=== PATIENT | female | born 1950 | race African-American/Black ===

== ENCOUNTER 2020-03-07 06:41 | Inpatient (IN) | payer MEDICARE, MEDICAID, OTHER ==
[2020-03-07 07:33] LABS: #Basophils 0.1 thou/uL (0.0-0.2); #Eosinphils 0.2 thou/uL (0.0-0.7); #Lymphocytes 2.3 thou/uL (1.20-3.40); #Monocytes 0.6 thou/uL (0.11-0.59); #Neutrophils 4.2 thou/uL (1.40-6.50); %Eosinophils 2.6 % (0.0-10.0); %Lymphocytes 31.3 % (21.0-51.0); %Monocytes 8.6 % (0.0-10.0); %Neutrophils 56.4 % (42.0-75.0); Hemoglobin 11.5 g/dL (12.0-16.0); Mean Corpuscular HGB CONC 30.3 g/dL (32.0-36.0); Mean Corpuscular Hemoglobin 29.7 pg (27.0-31.0); Platelet Count 158 thou/uL (130-400); RBC Distribution Width 14.7 % (11.5-14.5); Red Blood Cell (RBC) Count 3.86 mill/uL (4.20-5.40); White Blood Cell (WBC) Count 7.4 thou/uL (4.8-10.8)
--- NOTE | 2020-03-07 07:52 | RAD ---
Exam: Chest one view HISTORY:Abdominal pain. COPD and CHF. Comparison: 01/15/2007 FINDINGS: Cardiac silhouette: Normal Aorta: Elongated Pulmonary vessels: Normal Costophrenic angles: Minor fissure thickening. LUNGS: Bibasilar opacities may represent atelectasis or scar. Superimposed edema cannot be excluded. Pneumothorax: None Osseous abnormalities: None Lines and tubes: Right-sided HemoSplit dialysis catheter terminates over the cavoatrial junction. IMPRESSION: 1. Bibasilar subsegmental atelectasis or scarring. 2. Minimal thickening of the minor fissure. Component of interstitial edema cannot be excluded.
[2020-03-07 07:53] LABS: ALT (SGPT) Less than 7 U/L (8-55); AST (SGOT) 16 U/L (5-34); Albumin 3.7 g/dL (3.4-4.8); Alkaline Phosphatase 76 U/L (40-110); Anion Gap 15 mmol/L (10-20); BUN (Urea Nitrogen) 34 mg/dL (9.8-20.1); Bilirubin, Total 0.3 mg/dL (0.2-1.2); Calc. Creatinine Clearance 0 mL/min (70-130); Calcium 8.6 mg/dL (7.8-10.44); Carbon Dioxide 27 mmol/L (23-31); Chloride 100 mmol/L (98-107); Estimated GFR-MDRD 8; Globulin 3.2 g/dL (2.4-3.5); Glucose 359 mg/dL (80-115); Lipase 83 U/L (8-78); Potassium 4.3 mmol/L (3.5-5.1); Protein, Total 6.9 g/dL (6.0-8.3); Sodium 138 mmol/L (136-145)
--- NOTE | 2020-03-07 09:20 | CT ---
CT ABDOMEN AND PELVIS WITHOUT IV CONTRAST: Date: 03/07/2020 INDICATION: Abdominal pain. Comparison made to prior CT abdomen and pelvis from 2007. FINDINGS: Streaky atelectasis in both lung bases posteriorly. Liver, spleen, and pancreas unremarkable. Stomach and duodenum unremarkable. There is a right adrenal nodule which is new since the prior study. This measures approximately 2.3 c m. The densities are very low, indicating a benign adenoma. Left adrenal gland unremarkable. Kidneys unremarkable. No hydronephrosis or urinary calculus. Small bowel loops normal caliber. Colon unremarkable with prominent stool in the rectosigmoid region. Consider constipation. Aorta normal caliber with mild atherosclerotic change. No adenopathy. No free fluid. Postoperative changes seen in the anterior abdominal wall in the midline. There is a calcified nodule in the anterior mesentery to the right of midline at the site of the prev iously noted low density mass. Osseous structures show an anterior compression deformity involving the T12 vertebra with loss of ant erior height greater than 50%. Posterior height is preserved. No retropulsion. Degenerative disc morales ges at T11-T12 and T12-L1 are noted. IMPRESSION: 1. Right adrenal nodule which has benign densities. 2. No acute intra-abdominal process identified. 3. Anterior wedge compression deformity involving the T12 vertebra which is age-indeterminate, proba alanna old. 4. Large volume stool in the rectosigmoid. POS: AH
[2020-03-07 10:07] LABS: Bilirubin 1+ (Negative); Blood, Urine Trace (Negative); Clarity Clear (Clear); Glucose, Urine (Dipstick) Normal (Negative); Ketone, Urine Trace mg/dL (Negative); Leukocyte Negative Leu/uL (Negative); Nitrite Negative (Negative); Protein, Urine (Dipstick) 200 mg/dL (Neg-Trace); RBC/HPF 0-3 HPF (0-3); Specific Gravity, Urine 1.021 (1.002-1.036); Squamous Epithelial 0-3 HPF (0-3); Urobilinogen 3 mg/dL (Less than 2); pH, Urine 5.5 (5.0-9.0)
[2020-03-07 10:16] LABS: Bacteria/HPF None Seen HPF (None Seen)
--- NOTE | 2020-03-07 10:54 | PDOC.HHP ---
Hospitalist HPI - History of Present Illness abdominal pain History of Present Illness: PCP: Out of [facility], [facility] call Patient is a 69-year-old female with past medical history significant for COPD, end-stage renal disease on dialysis, diabetes type 2, and hypothyroidism. She presents to the ER today with complaints of abdominal pain and epigastric pain. She also had some social concerns stating that she is homeless and wheelchair- bound and does currently not have a wheelchair. She is also oxygen dependent and states that she was unable to have her prescription refilled. When EMS came to the house her oxygen levels were 72 but quickly improved once O2 was placed on. She does state that she has been compliant with her dialysis and her last treatment was on Saturday which was 2 days ago. Her regular dialysis days are Saturday, Saturday, and Saturday. Patient was very tired during the interview and kept falling asleep, was also a poor historian. She states that she stayed at a friend's house last night as she had been staying with her son but that is "not working out well" at this time. She denies chest pain, exposure to sick persons, change in bladder patterns. Patient does states she does not know when her last bowel movement was. ED Course: VITAL SIGNS SatMar 07, 2020 06:44 BRYAN Bray Lee BP: 119/56, Pulse: 92, Resp: 18, Temp: 98.0 (Oral), Pain: 10, O2 sat: 72 on (Room Air), Time: 03/07/2020 06:44. VITAL SIGNS SatMar 07, 2020 08:30 BRYAN Cha Melanie BP: 133/74, MAP: 93, Pulse: 74, Resp: 21, Pain: 10, O2 sat: 98 on (3L Oxygen), Time: 03/07/2020 08:30. VITAL SIGNS SatMar 07, 2020 07:59 BRYAN Cha Melanie BP: 104/45, MAP: 64, Pulse: 73, Resp: 18, Pain: 9, O2 sat: 98 on (3L Oxygen), Time: 03/07/2020 07:59. VITAL SIGNS SatMar 07, 2020 07:00 BRYAN Cha Melanie O2 sat: 100 on (3L Oxygen), Time: 03/07/2020 07:00. VITAL SIGNS SatMar 07, 2020 09:10 BRYAN Cha Melanie BP: 116/66, MAP: 82, Pulse: 73, Resp: 22, Pain: 10, O2 sat: 100 on (3L Oxygen), Time: 03/07/2020 09:10. Today in the ER they completed an EKG, chest x-ray, lab work, and Covid swab. She received 500 mL of normal saline. Hospitalist ROS - Review of Systems Respiratory: reports: shortness of breath Gastrointestinal: reports: abdominal pain - Medication Medications: Allergies: ampicillin, Benadryl, latex gloves, penicillin G sodium Current Medications: nitroglycerin sublingual SatMar 07, 2020 07:36 BRYAN Cha Melanie tablet, sublingual : Strength - 0.4 mg : SUBLINGUAL Patient Dose: 0.4 mg Oral. gabapentin SatMar 07, 2020 09:04 BRYAN Cha Melanie capsule : Strength - 100 mg : ORAL Patient Dose: 100 mg Oral once a day (at bedtime). carvedilol SatMar 07, 2020 09:05 BRYAN Cha Melanie tablet : Strength - 6.25 mg : ORAL Patient Dose: 6.25 mg Oral once a day (in the morning). amLODIPine SatMar 07, 2020 09:06 BRYAN Cha Melanie tablet : Strength - 10 mg : ORAL Patient Dose: 10 mg Oral once a day (in the morning). rosuvastatin SatMar 07, 2020 09:06 BRYAN Cha Melanie tablet : Strength - 40 mg : ORAL Patient Dose: 40 mg Oral once a day (at bedtime). pantoprazole oral SatMar 07, 2020 09:07 BRYAN Cha Melanie tablet,delayed release (DR/EC) : Strength - 40 mg : ORAL Patient Dose: 40 mg Oral once a day (in the morning). Lexapro SatMar 07, 2020 09:07 BRYAN Cha Melanie tablet : Strength - 10 mg : ORAL Patient Dose: 10 mg Oral 2 times a day. calcium acetate oral SatMar 07, 2020 09:09 BRYAN Cha Melanie capsule : Strength - 667 mg : ORAL Patient Dose: 1334 mg Oral 3 times a day. Hospitalist History - Past Medical History Cardiac: reports: CHF Pulmonary: reports: COPD Psych: reports: Anxiety, Depression Endocrine: reports: Diabetes, Hypothyroidism - Past Surgical History Other Surgical History: hand and foot surgery - Family History Family History: reports: no pertinent history - Social History Smoking Status: Never smoker Alcohol: reports: None Drugs: reports: none Living Situation: Homeless Activity level: wheelchair bound - Exam General Appearance: NAD General - other findings: Sleepy, easily arousable Eye: PERRL, anicteric sclera ENT: normocephalic atraumatic, moist mucosa Heart: RRR, no murmur, no gallops, no rubs, normal peripheral pulses Respiratory: CTAB, no wheezes, no rales, no ronchi, normal chest expansion Gastrointestinal: soft, normal bowel sounds, tender to palpation Extremities: no cyanosis, no clubbing, no edema Skin - other findings: Dialysis port to right upper chest Psychiatric: oriented to person, oriented to place Psychiatric - other findings: Patient stated the year was 2001 Hospitalist Results - Labs Result Diagrams: 03/07/20 07:01 03/07/20 07:01 Lab results: WBC 7.4 thou/uL (4.8-10.8) 03/07/20 07:01 Hgb 11.5 g/dL (12.0-16.0) L 03/07/20 07:01 Hct 37.8 % (36.0-47.0) 03/07/20 07:01 MCV 98.0 fL (78.0-98.0) 03/07/20 07:01 Plt Count 158 thou/uL (130-400) 03/07/20 07:01 Neutrophils % 56.4 % (42.0-75.0) 03/07/20 07:01 Sodium 138 mmol/L (136-145) 03/07/20 07:01 Potassium 4.3 mmol/L (3.5-5.1) 03/07/20 07:01 Chloride 100 mmol/L (98-107) 03/07/20 07:01 Carbon Dioxide 27 mmol/L (23-31) 03/07/20 07:01 BUN 34 mg/dL (9.8-20.1) H 03/07/20 07:01 Creatinine 6.51 mg/dL (0.6-1.1) H 03/07/20 07:01 Glucose 359 mg/dL (80-115) H 03/07/20 07:01 Calcium 8.6 mg/dL (7.8-10.44) 03/07/20 07:01 Total Bilirubin 0.3 mg/dL (0.2-1.2) 03/07/20 07:01 AST 16 U/L (5-34) 03/07/20 07:01 ALT Less than 7 U/L (8-55) L 03/07/20 07:01 Alkaline Phosphatase 76 U/L (40-110) 03/07/20 07:01 Troponin I 0.016 ng/mL (< 0.028) 03/07/20 07:01 B-Natriuretic Peptide 31.6 pg/mL (0-100) 03/07/20 07:01 Serum Total Protein 6.9 g/dL (6.0-8.3) 03/07/20 07:01 Albumin 3.7 g/dL (3.4-4.8) 03/07/20 07:01 Lipase 83 U/L (8-78) H 03/07/20 07:01 Urine Ketones Trace mg/dL (Negative) A 03/07/20 09:51 Urine Blood Trace (Negative) A 03/07/20 09:51 Urine Nitrite Negative (Negative) 03/07/20 09:51 Ur Leukocyte Esterase Negative Russ/uL (Negative) 03/07/20 09:51 Urine RBC 0-3 HPF (0-3) 03/07/20 09:51 Urine WBC 4-6 HPF (0-3) A 03/07/20 09:51 Ur Squamous Epith Cells 0-3 HPF (0-3) 03/07/20 09:51 Urine Bacteria None Seen HPF (None Seen) 03/07/20 09:51 - EKG Interpretation EKG: Sinus rhythm 83 bpm - Radiology Interpretation Chest x-ray Status: image reviewed by me, report reviewed by me Additional Comment: Exam: Chest one view HISTORY:Abdominal pain. COPD and CHF. Comparison: 01/15/2007 FINDINGS: Cardiac silhouette: Normal Aorta: Elongated Pulmonary vessels: Normal Costophrenic angles: Minor fissure thickening. LUNGS: Bibasilar opacities may represent atelectasis or scar. Superimposed edema cannot be excluded. Pneumothorax: None Osseous abnormalities: None Lines and tubes: Right-sided HemoSplit dialysis catheter terminates over the cavoatrial junction. IMPRESSION: 1. Bibasilar subsegmental atelectasis or scarring. 2. Minimal thickening of the minor fissure. Component of interstitial edema cannot be excluded. Hospitalist H&P A/P - Plan Plan: Hypoxia O2 saturation greatly improved once patient was placed on oxygen Patient normally on home oxygen but has not been available recently, unsure how long patient has been off of oxygen Case management consult to assist with resources Abdominal pain Abdominal CT shows large volume of stool in the rectosigmoid P.r.n. medications available to assist patient having bowel movement Patient unsure when her last bowel movement was Monitor if patient's abdominal pain decreases after bowel movement End stage renal disease on dialysis Patient states she has been compliant with her dialysis treatments Patient unsure who her jig builder is or what treatment center she uses States dialysis port was placed in [place] Consult nephrology for hospital stay Diabetes type 2 Monitor Accu-Cheks before meals at bedtime with mild sliding scale insulin No diabetic medications listed on home regimen Hemoglobin A1c ordered VTE prophylaxis in place with SCDs, GI prophylaxis with Pepcid CODE STATUS: Full Patient does not wish to list a surrogate decision-maker
[2020-03-07] MEDS ORDERED: Dextrose 5% in Water 1,000 ML IV PRN (11:42)
[2020-03-07] MEDS ORDERED: Dextrose 50% Abboject 50 ML SYRINGE SLOW IVP PRN (11:42)
[2020-03-07] MEDS ORDERED: Bisacodyl 5 MG TAB PO PRN (11:42)
[2020-03-07] MEDS ORDERED: HumaLOG 300 UNITS/3 ML VIAL SC PRN (11:42)
[2020-03-07] MEDS ORDERED: Senokot S 8.6-50 MG TAB PO PRN (11:42)
[2020-03-07 11:56] LABS: Troponin I Less than 0.010 ng/mL (< 0.028)
[2020-03-07] MEDS: HumaLOG 300 UNITS/3 ML VIAL SC PRN ×2 (13:55→19:22)
[2020-03-07 14:05] LABS: Troponin I Less than 0.010 ng/mL (< 0.028)
[2020-03-07] MEDS ORDERED: Acetaminophen 325 MG TAB PO PRN (14:42)
[2020-03-07] MEDS: Heparin 5,000 UNITS/ML VIAL SC SCH (20:51)
[2020-03-07] MEDS ORDERED: Famotidine 20 MG TAB PO SCH (21:00)
[2020-03-08 04:43] LABS: #Basophils 0.1 thou/uL (0.0-0.2); #Eosinphils 0.3 thou/uL (0.0-0.7); #Lymphocytes 2.4 thou/uL (1.20-3.40); #Monocytes 0.7 thou/uL (0.11-0.59); #Neutrophils 4.1 thou/uL (1.40-6.50); %Basophils 0.8 % (0.0-1.0); %Eosinophils 3.6 % (0.0-10.0); %Lymphocytes 32.2 % (21.0-51.0); %Monocytes 8.7 % (0.0-10.0); %Neutrophils 54.7 % (42.0-75.0); Mean Corpuscular HGB CONC 30.1 g/dL (32.0-36.0); Mean Corpuscular Hemoglobin 29.7 pg (27.0-31.0); Mean Corpuscular Volume 98.9 fL (78.0-98.0); Mean Platelet Volume 8.3 fL (7.4-10.4); Platelet Count 151 thou/uL (130-400); RBC Distribution Width 14.7 % (11.5-14.5); Red Blood Cell (RBC) Count 3.69 mill/uL (4.20-5.40); White Blood Cell (WBC) Count 7.5 thou/uL (4.8-10.8)
[2020-03-08 04:48] LABS: Hemoglobin A1c 8.1 % (4.0-6.0)
[2020-03-08 05:07] LABS: Albumin 3.4 g/dL (3.4-4.8); Anion Gap 16 mmol/L (10-20); BUN (Urea Nitrogen) 43 mg/dL (9.8-20.1); BUN/Creatinine Ratio 7.26; Calc. Creatinine Clearance 14 mL/min (70-130); Calcium 8.2 mg/dL (7.8-10.44); Carbon Dioxide 27 mmol/L (23-31); Chloride 100 mmol/L (98-107); Estimated GFR-MDRD 9; Glucose 201 mg/dL (80-115); Phosphorus 7.5 mg/dL (2.3-4.7); Potassium 4.7 mmol/L (3.5-5.1); Sodium 138 mmol/L (136-145)
[2020-03-08] MEDS: HumaLOG 300 UNITS/3 ML VIAL SC PRN ×2 (06:04→18:00)
--- NOTE | 2020-03-08 07:04 | CON ---
DATE OF CONSULTATION: REASON FOR CONSULTATION: End-stage renal disease, for maintenance hemodialysis. HISTORY OF PRESENT ILLNESS: This is a 69-year-old female, presented to the hospital with abdominal pain. The patient does dialysis Saturday, , Saturday at [facility] in [place]. The patient denies any nausea, vomiting, or chest pain. The patient has recently started dialysis. PAST MEDICAL HISTORY: Hypertension, congestive heart failure, diabetes mellitus, hypothyroidism, COPD, anxiety, depression, chronic pain medication use, hand surgery, foot surgery, tunneled dialysis catheter AV fistula. SOCIAL HISTORY: No alcohol or drug use. FAMILY HISTORY: Negative for ESRD. ALLERGIES: REVIEWED. HOME MEDICATIONS: List reviewed. HOSPITAL MEDICATIONS: List reviewed. REVIEW OF SYSTEMS: A 15-point review of systems was performed, negative except for positives noted above. HEENT: Eyes intact, no diplopia. Ears: No hearing loss or earache. Nose: No discharge or bleeding. CHEST: No cough or phlegm. ABDOMEN: No nausea or vomiting. GENITOURINARY: No hematuria. No Gonzalez catheter. MUSCULOSKELETAL: No low back pain. No joint swelling or pain. NEUROLOGICAL: No syncope. No seizures. SKIN: No complaints of rash or itching. PSYCHIATRIC: No depression. CONSTITUTIONAL: No weight loss or loss of appetite. PHYSICAL EXAMINATION: GENERAL: The patient is awake and alert. VITAL SIGNS: Afebrile, pulse 75, breathing at 16, blood pressure 124/64. HEENT: Head normocephalic and atraumatic. Eyes intact, no ulcers. Nose intact, no ulcers. Ears intact, no ulcers. NECK: Supple. No JVD. CHEST: Symmetrical and clear. CARDIOVASCULAR: Shows S1 and S2, no rub, no murmur. GASTROINTESTINAL: Abdomen is soft, bowel sounds positive. EXTREMITIES: Show no edema or ulcers. SKIN: Shows no rash or petechiae. MUSCULOSKELETAL: Shows no joint swelling or stiffness. GENITOURINARY: Shows no Gonzalez or CVA tenderness. NEUROLOGIC: Motor intact. Cranial nerves intact. LABORATORY DATA: Reviewed. ASSESSMENT AND PLAN: 1. Stage 6 chronic kidney disease, plan dialysis tomorrow. 2. Hypertension, stable. 3. Anemia, stable. Medication based on GFR appropriate. 4. Abdominal pain, management per primary team. Job ID: [id number]
--- NOTE | 2020-03-08 10:06 | PRG ---
DATE OF SERVICE: 03/08/2020 SUBJECTIVE: A 69-year-old female, being seen for end-stage renal disease. The patient denies any nausea, vomiting, or chest pain. PHYSICAL EXAMINATION: GENERAL: The patient is awake and alert. VITAL SIGNS: Afebrile, pulse 77, breathing at 16, blood pressure 112/58. HEENT: Head normocephalic and atraumatic. Eyes intact, no ulcers. Nose intact, no ulcers. Ears intact, no ulcers. NECK: Supple. No JVD. CHEST: Symmetrical and clear. CARDIOVASCULAR: Shows S1 and S2, no rub, no murmur. GASTROINTESTINAL: Abdomen is soft, bowel sounds positive. EXTREMITIES: Show no edema or ulcers. SKIN: Shows no rash or petechiae. MUSCULOSKELETAL: Shows no joint swelling or stiffness. Genitourinary: Shows no Gonzalez or CVA tenderness. Neurologic: Motor intact. Cranial nerves intact. LABORATORY DATA: Hemoglobin 11. ASSESSMENT AND PLAN: 1. Stage 6 chronic kidney disease, plan dialysis. 2. Hypertension, stable. 3. Anemia, stable. Medication based on GFR appropriate. Job ID: [id number]
[2020-03-08] MEDS ORDERED: Heparin 10,000 UNITS/ 10 ML VIAL ONE (10:34)
[2020-03-08 11:42] LABS: SARS-CoV-2 MS2 Positive; SARS-CoV-2 N Gene Negative; SARS-CoV-2 S Gene Negative; SARS-CoV-2 by NAA Not Detected (NotDetected); SARS-CoV-2 orf1ab Negative
--- NOTE | 2020-03-08 13:52 | PDOC.HOSPP ---
- Subjective Encounter Date: 03/08/20 Encounter Time: 13:35 Subjective: f/u dyspnea/ESRD on HD and COPD on prior home O2. s/p HD this am and feeling better. States she recently moved back to [facility] after 46years away. Needs to establish with PCP. - Objective Vital Signs & Weight: Vital Signs (12 hours) Temp Pulse Resp BP Pulse Ox 03/08/20 07:30 97.5 F L 77 16 112/58 L 93 L 03/08/20 07:20 96 03/08/20 03:20 98.3 F 71 22 H 99/56 L 96 Weight Weight 211 lb 10.3 oz I&O: 03/07/20 03/08/20 03/09/20 06:59 06:59 06:59 Intake Total 240 Balance 240 Result Diagrams: 03/08/20 03:59 03/08/20 03:59 Additional Labs: Accuchecks 03/08/20 03/07/20 03/07/20 06:00 21:37 16:59 POC Glucose 187 H 206 H 179 H 03/07/20 12:40 POC Glucose 223 H Laboratory Tests 03/07/20 03/07/20 03/08/20 07:01 12:02 03:59 Hemoglobin A1c 8.1 H Phosphorus B-Natriuretic Peptide 31.6 Albumin PTH Intact SARS-CoV-2 (PCR) Not Detected 03/08/20 03/08/20 03:59 03:59 Hemoglobin A1c Phosphorus 7.5 H B-Natriuretic Peptide Albumin 3.4 PTH Intact 280.8 H SARS-CoV-2 (PCR) Radiology Reviewed by me: Yes (PCXR - chronic changes, interstitial edema) EKG Reviewed by me: Yes (Tele - SR) Hospitalist ROS - Medication Medications: Active Medications Generic Name Dose Route Start Last Admin Trade Name Freq PRN Reason Stop Dose Admin Heparin Sodium (Porcine) 5,000 units 03/07/20 21:00 03/07/20 20:51 Heparin 5,000 Units/Ml Vial SC 5,000 units TID ALBERTO Administration Insulin Human Lispro 0 units 03/07/20 11:42 03/08/20 06:04 Humalog 300 Units/3 Ml Vial SC 2 unit .MILD SLIDING SCALE PRN Administration Mild Correctional Scale - Exam General Appearance: NAD, awake alert General - other findings: smiling Eye: PERRL, anicteric sclera ENT: normocephalic atraumatic, no oropharyngeal lesions Neck: supple, symmetric, no JVD, no thyromegaly, no lymphadenopathy Heart: RRR, no gallops, no rubs, normal peripheral pulses Heart - other findings: S1, S2 Respiratory: CTAB, no wheezes, no rales, no ronchi Respiratory - other findings: diminished in bases Gastrointestinal: soft, non-distended, normal bowel sounds, no palpable masses Gastrointestinal - other findings: obese Extremities: no cyanosis, 1+ LE edema Skin: normal turgor Neurological: cranial nerve grossly intact, no new deficit Musculoskeletal: generalized weakness Psychiatric: normal affect, A&O x 3 Hosp A/P (1) ESRD (end stage renal disease) on dialysis Code(s): N18.6 - END STAGE RENAL DISEASE; Z99.2 - DEPENDENCE ON RENAL DIALYSIS Status: Acute Plan: HD per Renal service, serial monitoring (2) Acute respiratory failure with hypoxia Code(s): J96.01 - ACUTE RESPIRATORY FAILURE WITH HYPOXIA Status: Acute Plan: Mild resp distress, continue O2 supplementation, arrange for home O2 (3) DM II (diabetes mellitus, type II), controlled Code(s): E11.9 - TYPE 2 DIABETES MELLITUS WITHOUT COMPLICATIONS Status: Chronic Plan: ISS, resume home DM regimen, ADA (4) Hyperphosphatemia Code(s): E83.39 - OTHER DISORDERS OF PHOSPHORUS METABOLISM Status: Acute Plan: s/p HD today, serial monitoring (5) HTN (hypertension) Code(s): I10 - ESSENTIAL (PRIMARY) HYPERTENSION Status: Chronic Qualifiers: Hypertension type: essential hypertension Qualified Code(s): I10 - Essential (primary) hypertension Plan: Resume home BP regimen, serial monitoring - Plan PT/OT, social services manager, respiratory therapy, DVT proph w/SCDs Stable currently HD per Renal service Resume home BP regimen CM for dispo planning Likely will need home O2 AM lab: BMP, CBC
[2020-03-08] MEDS ORDERED: Nitroglycerin 0.4 MG TAB 1 EACH SL PRN (13:59)
[2020-03-08] MEDS: Heparin 5,000 UNITS/ML VIAL SC SCH ×3 (14:37→20:32)
[2020-03-08 15:09] VITALS: BMI 36.3
[2020-03-08] MEDS ORDERED: Non-Formulary Item 1 EACH (Albuterol Sulfate Hfa (Or) 200 PUFF Inh) IH SCH (17:00)
[2020-03-08] MEDS: traMADol HCl 50 MG TAB PO PRN (18:00)
[2020-03-08] MEDS: Calcium Acetate 667 MG CAP PO SCH (18:00)
[2020-03-08] MEDS: Mometasone 200 MCG/Formoterol 5 MCG 120 PUFF INHALER INH SCH (18:56)
[2020-03-08] MEDS: Carvedilol 6.25 MG TAB PO SCH (20:30)
[2020-03-08] MEDS: levETIRAcetam 500 MG TAB PO SCH (20:30)
[2020-03-08] MEDS ORDERED: Rosuvastatin 10 MG TAB PO SCH (21:00)
[2020-03-08] MEDS ORDERED: Non-Formulary Item 1 EACH (Insulin Detemir [Levemir Flextouch] 100 UNIT/ML Insuln.Pen) SQ SCH (21:00)
[2020-03-08] MEDS ORDERED: Insulin Glargine 24 UNITS in Pre-Filled Syringe 1 EACH SC SCH (21:00)
[2020-03-08] MEDS ORDERED: Gabapentin 100 MG CAP PO SCH (21:00)
[2020-03-09 04:20] LABS: #Eosinphils 0.2 thou/uL (0.0-0.7); #Lymphocytes 2.4 thou/uL (1.20-3.40); #Monocytes 0.7 thou/uL (0.11-0.59); %Basophils 0.2 % (0.0-1.0); %Eosinophils 3.1 % (0.0-10.0); %Lymphocytes 32.9 % (21.0-51.0); %Monocytes 9.8 % (0.0-10.0); Hemoglobin 10.9 g/dL (12.0-16.0); Mean Corpuscular HGB CONC 30.1 g/dL (32.0-36.0); Mean Corpuscular Hemoglobin 29.8 pg (27.0-31.0); Mean Corpuscular Volume 98.8 fL (78.0-98.0); Mean Platelet Volume 8.4 fL (7.4-10.4); Platelet Count 125 thou/uL (130-400); RBC Distribution Width 14.9 % (11.5-14.5); Red Blood Cell (RBC) Count 3.66 mill/uL (4.20-5.40); White Blood Cell (WBC) Count 7.4 thou/uL (4.8-10.8)
[2020-03-09 04:33] LABS: Anion Gap 14 mmol/L (10-20); BUN (Urea Nitrogen) 29 mg/dL (9.8-20.1); Calc. Creatinine Clearance 20 mL/min (70-130); Calcium 8.1 mg/dL (7.8-10.44); Carbon Dioxide 25 mmol/L (23-31); Chloride 102 mmol/L (98-107); Estimated GFR-MDRD 13; Glucose 184 mg/dL (80-115); Potassium 4.5 mmol/L (3.5-5.1); Sodium 136 mmol/L (136-145)
[2020-03-09] MEDS: Calcium Acetate 667 MG CAP PO SCH ×2 (07:41→11:31)
[2020-03-09] MEDS: levETIRAcetam 500 MG TAB PO SCH (07:48)
[2020-03-09] MEDS: Carvedilol 6.25 MG TAB PO SCH (07:48)
[2020-03-09] MEDS: traMADol HCl 50 MG TAB PO PRN (07:50)
[2020-03-09] MEDS: Heparin 5,000 UNITS/ML VIAL SC SCH (07:52)
--- NOTE | 2020-03-09 08:11 | PRG ---
DATE OF SERVICE: 03/09/2020 SUBJECTIVE: A 69-year-old female being seen for end-stage renal disease. The patient denies any nausea, vomiting, or chest pain. OBJECTIVE: GENERAL: Patient is awake, alert. VITAL SIGNS: Afebrile, pulse 68, breathing 16, blood pressure 128/63. HEENT: Head normocephalic and atraumatic. Eyes intact, no ulcers. Nose intact, no ulcers. Ears intact, no ulcers. NECK: Supple. No JVD. CHEST: Symmetrical and clear. CARDIOVASCULAR: Shows S1 and S2, no rub, no murmur. GASTROINTESTINAL: Abdomen is soft, bowel sounds positive. EXTREMITIES: Show no edema or ulcers. SKIN: Shows no rash or petechiae. MUSCULOSKELETAL: Shows no joint swelling or stiffness. GENITOURINARY: Shows no Gonzalez or CVA tenderness. NEUROLOGIC: Motor intact. Cranial nerves intact. LABORATORY DATA: Reviewed. ASSESSMENT: 1. Stage chronic kidney disease, continue hemodialysis. 2. Hypertension, stable. 3. Anemia, stable. Medication based on GFR appropriate. Job ID: [id number]
[2020-03-09] MEDS: Mometasone 200 MCG/Formoterol 5 MCG 120 PUFF INHALER INH SCH (08:25)
[2020-03-09] MEDS ORDERED: Escitalopram Oxalate 10 mg Tablet PO SCH (09:00)
[2020-03-09] MEDS ORDERED: Amlodipine 10 MG TAB PO SCH (09:00)
[2020-03-09] MEDS: HumaLOG 300 UNITS/3 ML VIAL SC PRN (11:31)
[2020-03-09 11:36] VITALS: BP 102/59; TEMP 98
--- NOTE | 2020-03-11 15:46 | DIS ---
DATE OF ADMISSION: 03/08/2020 DATE OF DISCHARGE: 03/09/2020 DISCHARGE DIAGNOSES: 1. End-stage renal disease with hemodialysis. 2. Acute on chronic hypoxic respiratory failure with chronic oxygen supplementation at 2 L/minute by nasal cannula. 3. Diabetes mellitus type 2, insulin requiring. 4. Hyperphosphatemia secondary to #1. 5. Hypertension, stable. 6. Seizure disorder. 7. Nonambulatory status. 8. Question of homelessness. CONSULTATIONS: Dr. Raphael with Nephrology Service. PERTINENT LABORATORY AND X-RAY FINDINGS: Creatinine ranged between 4.10 to 6.51, estimated GFR ranged between 8 to 13, calcium 8.2, hemoglobin A1c 8.1, phosphorus 7.5. Troponin I negative x3. BNP 32. Lipase 83. CBC showed a hemoglobin ranging between 10.9 to 11.5. COVID-19 PCR not detected 03/07/2020. Urine culture dated 03/07/2020 showed no growth at 24 hours. Portable chest x-ray dated 03/07/2020, showed bibasilar atelectasis. Mild interstitial edema. CT of the abdomen and pelvis dated 03/07/2020 showed no acute intraabdominal process. Large volume of stool in the rectosigmoid distribution. HOSPITAL COURSE: The patient was initially admitted after presenting with abdominal pain with associated shortness of breath. The patient with significant history of end-stage renal disease, on current hemodialysis, presented with increased shortness of breath and abdominal pain, undergoing general evaluation including CT of the abdomen and pelvis. No acute intraabdominal findings were noted and the patient did exhibit large amounts of stool in the rectosigmoid distribution. The patient was placed on oxygen supplementation and underwent hemodialysis at the direction of the Nephrology Service. The patient clinically stabilized and was on baseline oxygen supplementation at 2 L/minute by nasal cannula for the remainder of the hospital course. The patient was resumed on her regular diabetic regimen and antihypertensives and overall remained clinically stable. The patient was able to tolerate regular oral intake without nausea, vomiting, or clinical decompensation. Overall, the patient did remain clinically stable throughout the hospital course. I have examined the patient at the time of discharge and discussed followup instructions. The patient verbalizes understanding and agreement, ready for discharge 03/09/2020. DISCHARGE MEDICATIONS: 1. Amlodipine 10 mg p.o. daily. 2. Calcium acetate 1334 mg p.o. t.i.d. with meals. 3. Carvedilol 6.25 mg p.o. b.i.d. 4. Lexapro 20 mg p.o. daily. 5. Gabapentin 100 mg p.o. at bedtime. 6. Humalog 10 units subcutaneously t.i.d. with meals. 7. Levemir 24 units subcutaneously at bedtime. 8. Keppra 750 mg p.o. b.i.d. 9. Nitroglycerin 0.4 mg q.5 minutes p.r.n. chest pain. 10. Protonix 40 mg p.o. daily. 11. Crestor 40 mg p.o. at bedtime. 12. Proventil HFA one puff inhaled q.4 hours p.r.n. 13. Advair Diskus two inhalations b.i.d. FOLLOWUP: The patient may follow up with [facility] [place], [place]. The patient will follow up with Dr. Raphael with Nephrology Service for hemodialysis 3 times per week. CONDITION ON DISCHARGE: Guarded. ACTIVITY: Ad-michael, wheelchair-bound at baseline. DIET: ADA and renal. CODE STATUS: Full. DISPOSITION: To home, 03/09/2020. TIME SPENT: Total time preparing and coordinating discharge, 35 minutes. Job ID: [id number]
== END 2020-03-09 13:35 | disposition home or self-care (01) | DRG 189 ==
LOC: ERS 06:41 → 2NO 10:20 → OBSVTOIN 03-08 14:03
PROVIDERS: ADMIT Family Medicine; ATTEND Family Medicine
PROC: 5A1D70Z Performance of Urinary Filtration, Intermittent, Less than 6 Hours Per Day (ICD-10-PCS; principal; 2020-03-08)
DX: J96.21 Acute and chronic respiratory failure with hypoxia (principal); N18.6 End stage renal disease; I13.2 Hypertensive heart and chronic kidney disease with heart failure and with stage 5 chronic kidney disease, or end stage renal disease; Z20.828 Contact with and (suspected) exposure to other viral communicable diseases; J44.9 Chronic obstructive pulmonary disease, unspecified; E11.22 Type 2 diabetes mellitus with diabetic chronic kidney disease; E03.9 Hypothyroidism, unspecified; I50.9 Heart failure, unspecified; F41.9 Anxiety disorder, unspecified; F32.9 Major depressive disorder, single episode, unspecified; D63.1 Anemia in chronic kidney disease; E83.39 Other disorders of phosphorus metabolism; G40.909 Epilepsy, unspecified, not intractable, without status epilepticus; Z99.2 Dependence on renal dialysis; Z99.3 Dependence on wheelchair; Z88.0 Allergy status to penicillin; Z88.8 Allergy status to other drugs, medicaments and biological substances; Z88.1 Allergy status to other antibiotic agents; Z91.040 Latex allergy status; Z79.899 Other long term (current) drug therapy; Z59.0 Homelessness
CPT/HCPCS: 36415; 36416; 51701; 71045; 74176; 80048; 80053; 80069; 81003; 81015; 83036; 83690; 83880; 83970; 84484; 85025; 87086; 87635; 90935; 93005; 94640; 94760; G0257; G0378; J1644; J1815; J7620; U0003

== ENCOUNTER 2020-03-15 14:42 | Emergency (ER) | payer MEDICARE, MEDICAID ==
[2020-03-15 16:03] LABS: Anion Gap 19 mmol/L (10-20); BUN (Urea Nitrogen) 66 mg/dL (9.8-20.1); Calc. Creatinine Clearance 0 mL/min (70-130); Calcium 8.5 mg/dL (7.8-10.44); Carbon Dioxide 22 mmol/L (23-31); Chloride 101 mmol/L (98-107); Estimated GFR-MDRD 10; Glucose 260 mg/dL (80-115); Potassium 4.7 mmol/L (3.5-5.1); Sodium 137 mmol/L (136-145)
[2020-03-15 16:47] LABS: #Basophils 0.1 thou/uL (0.0-0.2); #Eosinphils 0.2 thou/uL (0.0-0.7); #Lymphocytes 2.7 thou/uL (1.20-3.40); #Monocytes 0.7 thou/uL (0.11-0.59); #Neutrophils 5.2 thou/uL (1.40-6.50); %Basophils 1.3 % (0.0-1.0); %Eosinophils 2.2 % (0.0-10.0); %Lymphocytes 29.9 % (21.0-51.0); %Monocytes 8.1 % (0.0-10.0); %Neutrophils 58.5 % (42.0-75.0); Hemoglobin 12.1 g/dL (12.0-16.0); Mean Corpuscular HGB CONC 31.1 g/dL (32.0-36.0); Mean Corpuscular Hemoglobin 29.7 pg (27.0-31.0); Mean Corpuscular Volume 95.4 fL (78.0-98.0); Mean Platelet Volume 8.9 fL (7.4-10.4); Platelet Count 136 thou/uL (130-400); RBC Distribution Width 14.3 % (11.5-14.5); Red Blood Cell (RBC) Count 4.06 mill/uL (4.20-5.40); White Blood Cell (WBC) Count 8.9 thou/uL (4.8-10.8)
--- NOTE | 2020-03-15 17:01 | RAD ---
EXAM: CHEST ONE VIEW HISTORY: Dyspnea. COMPARISON: 03/07/2020 FINDINGS: Tunneled right sided hemodialysis catheter remains in place. Cardiac silhouette is magnified by proje ction but stable in size. There are scattered bibasilar linear densities which may be related to mild volume loss or scarring. Linear densities have improved when compared to the prior exam. Focal e ventration right hemidiaphragm is present. No consolidation or pleural fluid is seen. No other interval change. IMPRESSION: Findings likely related to mild bibasilar scarring or atelectasis. No acute cardiopulmonary process i s present.
[2020-03-15 17:04] LABS: HBSAg Index 0.18 S/CO (0-0.99); Hep B Surf Ag Non-Reactive S/CO (NonReactive)
--- NOTE | 2020-03-15 23:05 | CON ---
DATE OF CONSULTATION: 03/15/2020 CONSULTING PHYSICIAN: ER doctor. REASON FOR CONSULTATION: End-stage renal disease evaluation and care. REASON FOR ADMISSION: Missing dialysis. HISTORY OF PRESENT ILLNESS: A 69-year-old female with history of COPD, end-stage renal disease, type 2 diabetes, came to the hospital after missing dialysis. Denies any shortness of breath. No chest pain or palpitation. No fever or chills. No nausea or vomiting. PAST MEDICAL HISTORY: Positive for end-stage renal disease, CHF, COPD, anxiety, depression, diabetes, hypothyroidism. PAST SURGICAL HISTORY: Had a foot surgery and dialysis access placement. HOME MEDICATIONS: Reviewed. ALLERGIES: AMPICILLIN, DIPHENHYDRAMINE, LATEX, AND PENICILLIN. SOCIAL HISTORY: No smoking, alcohol, or illicit drug abuse. FAMILY HISTORY: No history of kidney disease. REVIEW OF SYSTEMS: CONSTITUTIONAL: Negative for weight loss or gain, ability to conduct usual activities. SKIN: Negative for rash, itching. EYES: Negative for double vision, pain. ENT/MOUTH: Negative for nose bleeding, neck stiffness, pain, tenderness. CARDIOVASCULAR: Negative for palpitations, dyspnea on exertion, orthopnea. RESPIRATORY: Negative for shortness of breath, wheezing, cough, hemoptysis, fever or night sweats. GASTROINTESTINAL: Negative for poor appetite, abdominal pain, heartburn, nausea, vomiting, constipation, or diarrhea. GENITOURINARY: Negative for urgency, frequency, dysuria, nocturia. MUSCULOSKELETAL: Negative for pain, swelling. NEUROLOGIC/PSYCHIATRIC: Negative for anxiety, depression. ALLERGY/IMMUNOLOGIC: Negative for skin rash, bleeding tendency. PHYSICAL EXAMINATION: GENERAL: This is a well-built female, in no apparent distress. VITAL SIGNS: Reviewed. HEENT: Atraumatic, normocephalic. Oral mucosa moist. NECK: Supple. CV: S1, S2 heard. Rate and rhythm regular. RESPIRATORY: Clear. GASTROINTESTINAL: Abdomen is soft. MUSCULOSKELETAL: No tenderness. No edema. DERMATOLOGIC: Denies. NEUROLOGIC: Alert and awake. PSYCHIATRIC: Normal mood and affect. LABORATORY DATA: Potassium is 4.7, BUN is 66, creatinine 5.2. ASSESSMENT AND PLAN: 1. End-stage renal disease. The patient needs dialysis today. If she needs dialysis, continue dialysis TTS. 2. Edema, controlled. 3. History of hypertension. 4. Anemia of chronic disease. 5. Continue dialysis as tolerated if feasible at the hospital. Thank you for the consult. Job ID: [id number]
== END 2020-03-15 18:02 | disposition home or self-care (01) ==
LOC: ERS 14:42
DX: I13.2 Hypertensive heart and chronic kidney disease with heart failure and with stage 5 chronic kidney disease, or end stage renal disease (principal); N18.6 End stage renal disease; I50.9 Heart failure, unspecified; J44.9 Chronic obstructive pulmonary disease, unspecified; E11.22 Type 2 diabetes mellitus with diabetic chronic kidney disease; E03.9 Hypothyroidism, unspecified; Z86.73 Personal history of transient ischemic attack (TIA), and cerebral infarction without residual deficits; F41.9 Anxiety disorder, unspecified; F32.9 Major depressive disorder, single episode, unspecified; I25.10 Atherosclerotic heart disease of native coronary artery without angina pectoris; Z71.6 Tobacco abuse counseling; Z79.899 Other long term (current) drug therapy
CPT/HCPCS: 36415; 71045; 80048; 83880; 85025; 87340; 93005; 99406

== ENCOUNTER 2020-03-30 12:37 | Outpatient (CLI) | payer MEDICARE, MEDICAID ==
--- NOTE | 2020-03-30 14:37 | ULT ---
EXAM: Vein mapping for dialysis access HISTORY: End-stage renal disease. TECHNIQUE: Multiplanar grayscale and color Doppler images were obtained in a bilateral upper extremit y venous ultrasound. Spectral analysis of the Doppler waveforms of the vessels were performed. FINDINGS: The bilateral internal jugular veins and subclavian veins are patent without evidence of th rombus. Right brachial artery 4.9 mm Right radial artery 2.3 mm Right ulnar artery 2.2 mm Left brachial artery 5.2 mm Left radial artery 2.5 mm Left ulnar artery 1.9 mm RIGHT CEPHALIC VEIN in millimeters 3.4 -- Shoulder 2.2 -- Upper arm 1.8 -- Mid upper arm 1.6-- Just proximal to the elbow 1.9 -- Just distal to the elbow 2.1 -- Forearm 1.4 -- Wrist RIGHT BASILIC VEIN in millimeters 2.7 -- Shoulder 2.9 -- Upper arm 3.0 -- Mid upper arm 2.1 -- Just proximal to the elbow 1.6 -- Just distal to the elbow 1.6 -- Forearm 1.5 -- Wrist LEFT CEPHALIC VEIN in millimeters 3.3 -- Shoulder Thrombosed -- Upper arm Thrombosed -- Mid upper arm 0.8 -- Just proximal to the elbow 1.0 -- Just distal to the elbow 1.3 -- Forearm 1.4 -- Wrist LEFT BASILIC VEIN in millimeters 3.0 -- Shoulder 3.4 -- Upper arm 3.3 -- Mid upper arm 1.9 -- Just proximal to the elbow 2.1 -- Just distal to the elbow 1.6 -- Forearm 1.2 -- Wrist IMPRESSION: Vein mapping for dialysis access as above
== END 2020-03-30 12:38 | disposition home or self-care (01) ==
LOC: ULT 12:37
PROVIDERS: ATTEND Internal Medicine Nephrology
DX: R60.0 Localized edema (principal)
CPT/HCPCS: 93970

== ENCOUNTER 2020-04-18 07:20 | Emergency (ER) | payer MEDICARE, MEDICAID ==
--- NOTE | 2020-04-18 08:00 | RAD ---
RADIOGRAPH CHEST 1 VIEW: DATE: 04/18/2020 HISTORY: 69-year-old female with dyspnea and chest pain COMPARISON: 03/07/2020 FINDINGS: The thoracic aorta is tortuous and ectatic. There is no evidence of consolidation, pulmonary edema, o r pneumothorax. The lateral costophrenic angles are not effaced. Multifocal platelike pulmonary densities in the bilateral mid and lower lung zones consistent with subsegmental atelectasis and/or s car. There are probably at least mostly scar because there has been no interval change since the prior study. Right-sided hemodialysis catheter remains. IMPRESSION: 1) No acute pulmonary findings. 2) ectasia of thoracic aorta. 3) multifocal pulmonary scarring.
[2020-04-18 08:09] LABS: ALT (SGPT) 8 U/L (8-55); AST (SGOT) 8 U/L (5-34); Albumin 3.6 g/dL (3.4-4.8); Alkaline Phosphatase 76 U/L (40-110); Anion Gap 17 mmol/L (10-20); BUN (Urea Nitrogen) 72 mg/dL (9.8-20.1); Bilirubin, Total 0.2 mg/dL (0.2-1.2); Calc. Creatinine Clearance 0 mL/min (70-130); Calcium 8.1 mg/dL (7.8-10.44); Carbon Dioxide 27 mmol/L (23-31); Chloride 104 mmol/L (98-107); Estimated GFR-MDRD 20; Globulin 2.6 g/dL (2.4-3.5); Glucose 240 mg/dL (80-115); Potassium 4.8 mmol/L (3.5-5.1); Protein, Total 6.2 g/dL (6.0-8.3); Sodium 143 mmol/L (136-145)
[2020-04-18 08:10] LABS: #Basophils 0.1 thou/uL (0.0-0.2); #Eosinphils 0.3 thou/uL (0.0-0.7); #Lymphocytes 2.5 thou/uL (1.20-3.40); #Monocytes 0.7 thou/uL (0.11-0.59); #Neutrophils 3.6 thou/uL (1.40-6.50); %Basophils 1.4 % (0.0-1.0); %Eosinophils 4.1 % (0.0-10.0); %Lymphocytes 34.1 % (21.0-51.0); %Monocytes 10.1 % (0.0-10.0); %Neutrophils 50.4 % (42.0-75.0); Hemoglobin 11.8 g/dL (12.0-16.0); MDiff Complete? YES; Mean Corpuscular Volume 96.5 fL (78.0-98.0); Mean Platelet Volume 7.8 fL (7.4-10.4); Platelet Count 133 thou/uL (130-400); Platelet Morphology Comment Appears Adequate; Polychromasia SLIGHT = 2-3 cells (100X) (0-2/hpf); RBC Distribution Width 13.2 % (11.5-14.5); Red Blood Cell (RBC) Count 4.08 mill/uL (4.20-5.40); White Blood Cell (WBC) Count 7.2 thou/uL (4.8-10.8)
--- NOTE | 2020-04-18 08:19 | ULT ---
EXAM: Right upper extremity venous ultrasound HISTORY: Right upper extremity pain and edema COMPARISON: None TECHNIQUE: Multiplanar grayscale and color Doppler images were obtained in a right upper extremity ve nous ultrasound. Spectral analysis of the Doppler waveforms were performed. FINDINGS: The internal jugular vein demonstrates normal compression and flow without evidence of thrombus. Evaluation of the subclavian vein is limited secondary to multiple bandages. The subclavian vein demo nstrates normal flow and augmentation without evidence of thrombus. The axillary and brachial veins demonstrate normal compression, flow, and augmentation without eviden ce of thrombus. The venous structures distal to the elbow are patent without thrombus. The cephalic and basilic veins are patent. IMPRESSION: No evidence of DVT.
== END 2020-04-18 10:23 | disposition home or self-care (01) ==
LOC: ERS 07:20
DX: M79.89 Other specified soft tissue disorders (principal); E11.22 Type 2 diabetes mellitus with diabetic chronic kidney disease; N18.6 End stage renal disease; I50.9 Heart failure, unspecified; J44.9 Chronic obstructive pulmonary disease, unspecified; E03.9 Hypothyroidism, unspecified; Z99.2 Dependence on renal dialysis; Z86.73 Personal history of transient ischemic attack (TIA), and cerebral infarction without residual deficits
CPT/HCPCS: 36415; 71045; 80053; 85025

== ENCOUNTER 2020-04-26 15:24 | Emergency (ER) | payer MEDICARE, MEDICAID ==
--- NOTE | 2020-04-26 16:27 | CT ---
CT OF BRAIN PERFORMED WITHOUT CONTRAST ENHANCEMENT: 04/26/20 HISTORY: Fall with head injury. COMPARISON: 01/17/07 exam. The ventricular and cisternal system is within normal limits. There is no signs of intracerebral hemo rrhage or extra-axial fluid collections. Mastoid air cells and visualized sinuses are clear. IMPRESSION: No acute intracranial abnormalities. POS: KAUSHIK
--- NOTE | 2020-04-26 16:30 | CT ---
Exam: CT cervical spine without contrast HISTORY: Trauma. Pain. Patient got out of bed and fell. COMPARISON: None FINDINGS: No craniocervical dissociation. Appropriate alignment of the lateral masses of C1 and C2. Intact odon toid process Appropriate alignment of the facets. Craniocervical lordosis is presumed to be due to patient position, muscle spasm or cervical collar. Soft tissue neck structures: No mass, lymphadenopathy or hematoma. No prevertebral soft tissue swelli ng. Upper mediastinum and lung apices: Scarring in the right lung apex Central spinal canal: Severe degenerative disc disease at C3-C4, C4-C5, C5-C6. There are varying degr ees of central canal stenosis and neural foraminal narrowing on the basis of degenerative change. Vertebral bodies: Cervical spine vertebral body height is maintained. No fracture. Chronic changes al titus the superior endplate of T3. IMPRESSION: 1. Straightening of cervical lordosis as detailed above. If there is concern for ligamentous injury, consider MRI 2. No cervical spine fracture.
[2020-04-26] MEDS ORDERED: Ketorolac Tromethamine 30 MG/ML VIAL ONE (17:04)
--- NOTE | 2020-04-26 18:02 | CT ---
CT Thoracic Spine WO Con History: Fall Comparison: CT abdomen and pelvis February 2020. Findings: Mild atelectasis within the lung bases. Aortic contour is nonaneurysmal. No prevertebral he matoma. Chronic appearing superior endplate compression deformity of T3 with 5% anterior height loss and 15% superior endplate height loss. No retropulsion. Old compression deformity of T11 has no further height loss then the prior March 07, 2020 exam. No definite acute thoracic spine fracture or malalignment. Left-sided T12 superior endplate minimal compression deformity is also unchanged. Visualized posterior ribs are intact. No basilar pneumothorax. Impression: Chronic T3, T11, and T12 compression fractures. No acute thoracic spine fracture.
--- NOTE | 2020-04-26 18:06 | CT ---
CT Lumbar Spine WO Con History: Trauma. Fall Comparison: CT abdomen and pelvis February 2020 Findings: Old superior endplate compression deformity with minimal height loss of L3. No acute lumbar spine fracture or malalignment. Moderate facet arthrosis at L3-S1. No lumbar spine transverse process fracture. Visualized sacrum is without fracture. Moderate right and mild left SI joint degene rative changes. Moderate L4/L5 neural foraminal narrowing bilaterally due to disc bulge. Spinous processes are without fracture. No prevertebral hematoma. Aortic contour is nonaneurysmal. Mild right adrenal gland thickening. Impression: No acute lumbar spine fracture.
== END 2020-04-26 19:05 | disposition home or self-care (01) ==
LOC: ERS 15:24
DX: S09.90XA Unspecified injury of head, initial encounter (principal); J44.9 Chronic obstructive pulmonary disease, unspecified; N18.6 End stage renal disease; E11.22 Type 2 diabetes mellitus with diabetic chronic kidney disease; I50.9 Heart failure, unspecified; E03.9 Hypothyroidism, unspecified; W01.198A Fall on same level from slipping, tripping and stumbling with subsequent striking against other object, initial encounter; Z79.899 Other long term (current) drug therapy
CPT/HCPCS: 70450; 72125; 72128; 72131; 96374; J1885

== ENCOUNTER 2020-05-03 06:33 | Outpatient (CLI) | payer MEDICARE, MEDICAID ==
[2020-05-04 07:47] LABS: SARS-CoV-2 MS2 Positive; SARS-CoV-2 N Gene Negative; SARS-CoV-2 S Gene Negative; SARS-CoV-2 by NAA Not Detected (NotDetected); SARS-CoV-2 orf1ab Negative
== END 2020-05-03 06:34 | disposition home or self-care (01) ==
LOC: LABBT 06:33
PROVIDERS: ATTEND Specialist
DX: N18.6 End stage renal disease (principal); Z20.828 Contact with and (suspected) exposure to other viral communicable diseases
CPT/HCPCS: 87635; U0003

== ENCOUNTER 2020-05-17 11:22 | Emergency (ER) | payer MEDICARE, MEDICAID ==
[2020-05-17] MEDS ORDERED: Acetaminophen 500 MG TAB ONE (12:00)
--- NOTE | 2020-05-17 12:13 | RAD ---
RADIOGRAPH CHEST 1 VIEW: DATE: 05/17/2020 TIME: 12:01 PM HISTORY: 69-year-old female with cough COMPARISON: 04/18/2020 FINDINGS: The thoracic aorta is tortuous and ectatic. There is no evidence of consolidation, pulmonary edema, o r pneumothorax. The lateral costophrenic angles are not effaced. Multifocal platelike pulmonary densities in the bilateral mid and lower lung zones consistent with subsegmental atelectasis and/or s car. There are probably at least mostly scar because there has been no interval change since the prior study. Right-sided hemodialysis catheter remains. IMPRESSION: 1) No acute pulmonary findings. 2) ectasia of thoracic aorta. 3) multifocal pulmonary scarring.
--- NOTE | 2020-05-17 12:31 | RAD ---
XR Foot Lt 3 View STANDARD History: Injury Comparison: None. Findings: Small dorsal and plantar calcaneal spurs. No acute fracture. Fracture of the proximal phala nx small toe. Mild midfoot degenerative change. Impression: Extra-articular fracture proximal phalanx small toe.
[2020-05-17 12:49] LABS: #Basophils 0.1 thou/uL (0.0-0.2); #Eosinphils 0.2 thou/uL (0.0-0.7); #Lymphocytes 2.6 thou/uL (1.20-3.40); #Monocytes 0.6 thou/uL (0.11-0.59); #Neutrophils 4.2 thou/uL (1.40-6.50); %Eosinophils 2.4 % (0.0-10.0); %Lymphocytes 33.8 % (21.0-51.0); %Neutrophils 54.7 % (42.0-75.0); Hemoglobin 11.2 g/dL (12.0-16.0); Mean Corpuscular HGB CONC 30.6 g/dL (32.0-36.0); Mean Corpuscular Hemoglobin 29.3 pg (27.0-31.0); Mean Corpuscular Volume 95.8 fL (78.0-98.0); Mean Platelet Volume 4.5 fL (7.4-10.4); Platelet Count 128 thou/uL (130-400); RBC Distribution Width 13.2 % (11.5-14.5); Red Blood Cell (RBC) Count 3.82 mill/uL (4.20-5.40); White Blood Cell (WBC) Count 7.7 thou/uL (4.8-10.8)
[2020-05-17 13:00] LABS: ALT (SGPT) Less than 7 U/L (8-55); AST (SGOT) 8 U/L (5-34); Albumin 3.5 g/dL (3.4-4.8); Alkaline Phosphatase 61 U/L (40-110); Anion Gap 18 mmol/L (10-20); BUN (Urea Nitrogen) 52 mg/dL (9.8-20.1); Bilirubin, Total 0.3 mg/dL (0.2-1.2); Calc. Creatinine Clearance 0 mL/min (70-130); Calcium 7.6 mg/dL (7.8-10.44); Carbon Dioxide 29 mmol/L (23-31); Chloride 100 mmol/L (98-107); Globulin 2.9 g/dL (2.4-3.5); Glucose 161 mg/dL (80-115); Potassium 5.2 mmol/L (3.5-5.1); Protein, Total 6.4 g/dL (6.0-8.3); Sodium 142 mmol/L (136-145)
[2020-05-17] MEDS ORDERED: HYDROcodone/Acetaminophen 5/325 mg Tablet ONE (13:05)
== END 2020-05-17 14:00 | disposition home or self-care (01) ==
LOC: ERS 11:22
DX: S92.512A Displaced fracture of proximal phalanx of left lesser toe(s), initial encounter for closed fracture (principal); S90.415A Abrasion, left lesser toe(s), initial encounter; J44.9 Chronic obstructive pulmonary disease, unspecified; E03.9 Hypothyroidism, unspecified; E11.22 Type 2 diabetes mellitus with diabetic chronic kidney disease; N18.6 End stage renal disease; I50.9 Heart failure, unspecified; Z86.73 Personal history of transient ischemic attack (TIA), and cerebral infarction without residual deficits; Z99.2 Dependence on renal dialysis; Z79.4 Long term (current) use of insulin; Z79.899 Other long term (current) drug therapy; W22.8XXA Striking against or struck by other objects, initial encounter
CPT/HCPCS: 36415; 36416; 71045; 80053; 83605; 85025

== ENCOUNTER 2020-06-13 16:12 | Emergency (ER) | payer MEDICARE, MEDICAID ==
--- NOTE | 2020-06-13 17:11 | RAD ---
Exam: Chest one view HISTORY:Cough. Hemoptysis be Comparison: 05/17/2020 FINDINGS: Cardiac silhouette: Cardiomegaly. Stable right-sided HemoSplit dialysis catheter Aorta: Unremarkable Pulmonary vessels: Normal Costophrenic angles: Clear LUNGS: Bibasilar scarring and atelectasis. Pneumothorax: None Osseous abnormalities: None IMPRESSION: No acute cardiopulmonary process.
[2020-06-13 18:05] LABS: #Basophils 0.1 thou/uL (0.0-0.2); #Eosinphils 0.3 thou/uL (0.0-0.7); #Lymphocytes 2.2 thou/uL (1.20-3.40); #Monocytes 0.8 thou/uL (0.11-0.59); #Neutrophils 5.3 thou/uL (1.40-6.50); %Basophils 1.4 % (0.0-1.0); %Eosinophils 3.2 % (0.0-10.0); %Lymphocytes 25.1 % (21.0-51.0); %Monocytes 9.1 % (0.0-10.0); %Neutrophils 61.2 % (42.0-75.0); Hemoglobin 12.1 g/dL (12.0-16.0); Mean Corpuscular HGB CONC 30.7 g/dL (32.0-36.0); Mean Corpuscular Volume 94.5 fL (78.0-98.0); Mean Platelet Volume 7.6 fL (7.4-10.4); Platelet Count 159 thou/uL (130-400); RBC Distribution Width 13.5 % (11.5-14.5); Red Blood Cell (RBC) Count 4.18 mill/uL (4.20-5.40); White Blood Cell (WBC) Count 8.7 thou/uL (4.8-10.8)
[2020-06-13 18:36] LABS: ALT (SGPT) 7 U/L (8-55); AST (SGOT) 14 U/L (5-34); Albumin 3.8 g/dL (3.4-4.8); Alkaline Phosphatase 72 U/L (40-110); Anion Gap 18 mmol/L (10-20); BUN (Urea Nitrogen) 53 mg/dL (9.8-20.1); Bilirubin, Total 0.3 mg/dL (0.2-1.2); Calc. Creatinine Clearance 0 mL/min (70-130); Calcium 8.6 mg/dL (7.8-10.44); Carbon Dioxide 27 mmol/L (23-31); Chloride 98 mmol/L (98-107); Globulin 3.5 g/dL (2.4-3.5); Glucose 235 mg/dL (80-115); Potassium 5.4 mmol/L (3.5-5.1); Protein, Total 7.3 g/dL (5.8-8.1); Sodium 138 mmol/L (136-145)
== END 2020-06-13 18:56 | disposition home or self-care (01) ==
LOC: ERS 16:12
DX: R04.2 Hemoptysis (principal); J44.9 Chronic obstructive pulmonary disease, unspecified; E11.22 Type 2 diabetes mellitus with diabetic chronic kidney disease; N18.6 End stage renal disease; E03.9 Hypothyroidism, unspecified; Z86.73 Personal history of transient ischemic attack (TIA), and cerebral infarction without residual deficits; Z99.2 Dependence on renal dialysis; Z79.4 Long term (current) use of insulin; K43.9 Ventral hernia without obstruction or gangrene; Z79.899 Other long term (current) drug therapy
CPT/HCPCS: 36415; 71045; 80053; 85025

== ENCOUNTER 2020-07-05 11:31 | Emergency (ER) | payer MEDICARE, MEDICAID ==
[2020-07-05] MEDS ORDERED: Calcium Gluc 4.6 MEQ/10 ML (100 MG/ML) ONE (12:49)
[2020-07-05 12:57] LABS: #Basophils 0.1 thou/uL (0.0-0.2); #Eosinphils 0.2 thou/uL (0.0-0.7); #Monocytes 0.5 thou/uL (0.11-0.59); #Neutrophils 5.5 thou/uL (1.40-6.50); %Basophils 0.9 % (0.0-1.0); %Eosinophils 2.4 % (0.0-10.0); %Lymphocytes 24.2 % (21.0-51.0); %Monocytes 6.5 % (0.0-10.0); Hemoglobin 11.6 g/dL (12.0-16.0); Mean Corpuscular HGB CONC 31.7 g/dL (32.0-36.0); Mean Corpuscular Volume 94.6 fL (78.0-98.0); Mean Platelet Volume 8.1 fL (7.4-10.4); Platelet Count 126 thou/uL (130-400); RBC Distribution Width 13.4 % (11.5-14.5); Red Blood Cell (RBC) Count 3.87 mill/uL (4.20-5.40); White Blood Cell (WBC) Count 8.3 thou/uL (4.8-10.8)
[2020-07-05 13:18] LABS: ALT (SGPT) Less than 7 U/L (8-55); AST (SGOT) 10 U/L (5-34); Albumin 3.5 g/dL (3.4-4.8); Alkaline Phosphatase 72 U/L (40-110); Anion Gap 19 mmol/L (10-20); BUN (Urea Nitrogen) 88 mg/dL (9.8-20.1); Bilirubin, Total 0.2 mg/dL (0.2-1.2); Calc. Creatinine Clearance 0 mL/min (70-130); Calcium 7.7 mg/dL (7.8-10.44); Carbon Dioxide 25 mmol/L (23-31); Chloride 101 mmol/L (98-107); Globulin 3.3 g/dL (2.4-3.5); Glucose 358 mg/dL (80-115); Potassium 5.5 mmol/L (3.5-5.1); Protein, Total 6.8 g/dL (5.8-8.1); Sodium 139 mmol/L (136-145)
--- NOTE | 2020-07-05 14:07 | RAD ---
XR Chest 1 View Portable HISTORY: Dyspnea. Patient missed dialysis. COMPARISON: 06/13/2020 study. FINDINGS: Heart size is enlarged. No signs of overt failure. Bibasilar lung changes are similar to th e previous exam. IMPRESSION: Stable exam.
[2020-07-05] MEDS ORDERED: Sodium Bicarbonate 2.5 MEQ/5 ML VIAL ONE (14:25)
[2020-07-05] MEDS ORDERED: Dextrose 50% Abboject 50 ML SYRINGE ONE (14:26)
[2020-07-05] MEDS ORDERED: Sodium Bicarb 50 MEQ/50 ML Abboject 8.4% SYRINGE ONE (14:26)
[2020-07-05] MEDS ORDERED: Insulin Regular 300 UNITS/3 ML VIAL ONE (14:26)
[2020-07-05] MEDS ORDERED: Heparin 10,000 UNITS/ 10 ML VIAL ONE (16:55)
--- NOTE | 2020-07-05 19:52 | CON ---
DATE OF CONSULTATION: 07/05/2020 CONSULTING PHYSICIAN: Dr. Ventura from ER. REASON FOR CONSULTATION: End-stage renal disease evaluation. REASON FOR ADMISSION: Feeling weak. HISTORY OF PRESENT ILLNESS: This is a 69-year-old female with history of COPD, end-stage renal disease, type 2 diabetes, came to the hospital after missing dialysis and feeling weak and she is due for dialysis today. No fever or chills. The patient was found to be mildly hyperkalemic and Nephrology was consulted. PAST MEDICAL HISTORY: Positive for; 1. End-stage renal disease. 2. CHF. 3. COPD. 4. Anxiety. 5. Depression. 6. Type-2 diabetes. 7. Hypothyroidism. PAST SURGICAL HISTORY: Foot surgery, dialysis access placement. HOME MEDICATIONS: Reviewed. ALLERGIES: AMPICILLIN, ASPIRIN, DIPHENHYDRAMINE, LATEX, PENICILLIN. SOCIAL HISTORY: No smoking, alcohol, or illicit drug use. FAMILY HISTORY: No history of kidney disease. REVIEW OF SYSTEMS: CONSTITUTIONAL: Negative for weight loss or gain, ability to conduct usual activities. SKIN: Negative for rash, itching. EYES: Negative for double vision, pain. ENT/MOUTH: Negative for nose bleeding, neck stiffness, pain, tenderness. CARDIOVASCULAR: Negative for palpitations, dyspnea on exertion, orthopnea. RESPIRATORY: Negative for shortness of breath, wheezing, cough, hemoptysis, fever or night sweats. GASTROINTESTINAL: Negative for poor appetite, abdominal pain, heartburn, nausea, vomiting, constipation, or diarrhea. GENITOURINARY: Negative for urgency, frequency, dysuria, nocturia. MUSCULOSKELETAL: Negative for pain, swelling. NEUROLOGIC/PSYCHIATRIC: Negative for anxiety, depression. ALLERGY/IMMUNOLOGIC: Negative for skin rash, bleeding tendency. PHYSICAL EXAMINATION: GENERAL: This is a well-built female, in no apparent distress. VITAL SIGNS: Reviewed. HEENT: Atraumatic, normocephalic. Oral mucosa moist. NECK: Supple. CVS: S1, S2 heard. Rate and rhythm, regular. RESPIRATORY: Clear. GI: Abdomen is soft. MUSCULOSKELETAL: 1+ edema. DERMATOLOGIC: No skin rash. NEUROLOGIC: Alert and awake. PSYCHIATRIC: Normal mood and affect. LABORATORY DATA: Hemoglobin 11.6. Potassium 5.5, BUN is 88, creatinine is 5.09. ASSESSMENT AND PLAN: 1. End-stage renal disease. Plan to have dialysis. Dialysis nurse notified. We will have dialysis. 2. Edema. 3. History of . 4. Anemia of chronic disease. 5. Hypoalbuminemia. Plan to have dialysis as tolerated and we will follow. Job ID: [id number]
[2020-07-05] MEDS ORDERED: Acetaminophen 500 MG TAB ONE (22:38)
[2020-07-05] MEDS ORDERED: HYDROcodone/Acetaminophen 5/325 mg Tablet ONE (22:41)
[2020-07-06] MEDS ORDERED: Albumin 25% 25 GM/100 ML BOT IVPB SCH (03:15)
--- NOTE | 2020-07-09 15:54 | EKG ---
Test Reason : Blood Pressure : / mmHG Vent. Rate : 090 BPM Atrial Rate : 090 BPM P-R Int : 184 ms QRS Dur : 080 ms QT Int : 376 ms P-R-T Axes : 055 -44 111 degrees QTc Int : 459 ms Normal sinus rhythm Left axis deviation T wave abnormality, consider lateral ischemia Abnormal ECG Confirmed by ANGEL RICHARDS ([id number]), dictionary editor LINWOOD YI ([id number]) on 07/09/2020 3:53:38 PM Referred By: Confirmed By:ANGEL RICHARDS
== END 2020-07-06 08:18 | disposition home or self-care (01) ==
LOC: ERS 11:31
DX: E87.70 Fluid overload, unspecified (principal); E87.5 Hyperkalemia; J44.9 Chronic obstructive pulmonary disease, unspecified; E11.22 Type 2 diabetes mellitus with diabetic chronic kidney disease; N18.6 End stage renal disease; I50.9 Heart failure, unspecified; E03.9 Hypothyroidism, unspecified; Z86.73 Personal history of transient ischemic attack (TIA), and cerebral infarction without residual deficits; Z99.2 Dependence on renal dialysis; Z79.4 Long term (current) use of insulin; Z79.899 Other long term (current) drug therapy
CPT/HCPCS: 71045; 80053; 82962; 83880; 84484; 85025; 93005; 96374; 96375; 99285; P9047; 36416; 90935; G0257; J1644; J1815; J2001

== ENCOUNTER 2020-07-20 10:27 | Outpatient (CLI) | payer MEDICARE, MEDICAID ==
[2020-07-20 21:51] LABS: SARS-CoV-2 PCR by NAA Not Detected (NotDetected)
== END 2020-07-20 10:28 | disposition home or self-care (01) ==
LOC: LABBT 10:27
PROVIDERS: ATTEND Specialist
DX: Z01.812 Encounter for preprocedural laboratory examination (principal); E11.22 Type 2 diabetes mellitus with diabetic chronic kidney disease; N18.6 End stage renal disease; I50.9 Heart failure, unspecified; Z20.822 Contact with and (suspected) exposure to COVID-19
CPT/HCPCS: U0003; U0005; 87635

== ENCOUNTER 2020-07-25 05:26 | Observation (INO) | payer MEDICARE, MEDICAID ==
[2020-07-22 11:53] VITALS: BMI 38.9
[2020-07-25] MEDS ORDERED: Levofloxacin 500 mg/D5W 100 ml Premix Bag ONE (06:11)
[2020-07-25 06:46] LABS: #Basophils 0.1 thou/uL (0.0-0.2); #Eosinphils 0.2 thou/uL (0.0-0.7); #Lymphocytes 2.9 thou/uL (1.20-3.40); #Monocytes 0.8 thou/uL (0.11-0.59); #Neutrophils 5.6 thou/uL (1.40-6.50); %Basophils 0.8 % (0.0-1.0); %Eosinophils 2.5 % (0.0-10.0); %Lymphocytes 30.2 % (21.0-51.0); %Monocytes 8.4 % (0.0-10.0); %Neutrophils 58.1 % (42.0-75.0); Hemoglobin 11.6 g/dL (12.0-16.0); Mean Corpuscular HGB CONC 30.4 g/dL (32.0-36.0); Mean Corpuscular Hemoglobin 28.6 pg (27.0-31.0); Mean Corpuscular Volume 94.3 fL (78.0-98.0); Mean Platelet Volume 7.5 fL (7.4-10.4); Platelet Count 175 thou/uL (130-400); Red Blood Cell (RBC) Count 4.06 mill/uL (4.20-5.40); White Blood Cell (WBC) Count 9.6 thou/uL (4.8-10.8)
[2020-07-25] MEDS ORDERED: Protamine Sulfate 50 MG/5 ML VIAL ONE (06:55)
[2020-07-25] MEDS ORDERED: Heparin 10,000 UNITS/ 10 ML VIAL ONE ×2 (06:55→06:58)
[2020-07-25] MEDS ORDERED: Heparin 5,000 UNITS/ML VIAL ONE (06:55)
[2020-07-25] MEDS ORDERED: Lidocaine 1% w/Epinephrine 1:100K 20 ML VIAL ONE ×2 (06:55→10:33)
[2020-07-25] MEDS ORDERED: Bupivacaine 0.25% HCL 30 ML VIAL ONE ×2 (06:55→10:33)
[2020-07-25] MEDS ORDERED: Sodium Chloride 0.9% 20 ML ONE (06:55)
[2020-07-25 07:04] LABS: Anion Gap 15 mmol/L (10-20); Calc. Creatinine Clearance 17 mL/min (70-130); Calcium 9.1 mg/dL (7.8-10.44); Carbon Dioxide 30 mmol/L (23-31); Chloride 99 mmol/L (98-107); Glucose 214 mg/dL (80-115); Potassium 4.9 mmol/L (3.5-5.1); Sodium 139 mmol/L (136-145)
[2020-07-25 07:17] LABS: BUN (Urea Nitrogen) 50 mg/dL (9.8-20.1)
[2020-07-25] MEDS ORDERED: Fentanyl 100 MCG/2 ML VIAL ONE ×4 (07:20→12:27)
[2020-07-25] MEDS ORDERED: Lidocaine 2% PF 5 ML VIAL ONE (09:21)
[2020-07-25] MEDS ORDERED: Lidocaine 1% PF 5 ML VIAL ONE (10:59)
[2020-07-25] MEDS ORDERED: PHENYLEPHRINE-NS 100 MCG/ML 10 ML SYRINGE ONE (10:59)
[2020-07-25] MEDS ORDERED: PROPOFOL 200 MG/20 ML VIAL ONE (10:59)
[2020-07-25] MEDS ORDERED: Heparin 1,000 UNITS/ML VIAL ONE (13:08)
[2020-07-25] MEDS ORDERED: Morphine 2 MG/ML VIAL ONE ×2 (13:13→14:49)
[2020-07-25] MEDS ORDERED: Ondansetron PF 4 MG/2 ML Vial IVP PRN (13:29)
[2020-07-25] MEDS ORDERED: Dextrose 50% Abboject 50 ML SYRINGE SLOW IVP PRN (13:29)
[2020-07-25] MEDS ORDERED: Dextrose 5% in Water 1,000 ML IV PRN (13:29)
[2020-07-25] MEDS ORDERED: hydrALAZINE 20 MG/ML VIAL SLOW IVP PRN (13:29)
[2020-07-25] MEDS ORDERED: HumaLOG 300 UNITS/3 ML VIAL SC PRN (13:29)
[2020-07-25] MEDS ORDERED: Ondansetron ODT 4 MG TAB PO PRN (13:29)
[2020-07-25] MEDS ORDERED: Acetaminophen 500 MG TAB PO PRN (13:33)
[2020-07-25] MEDS ORDERED: Nitroglycerin 0.4 MG TAB (25 Tab Bottle) SL PRN (13:34)
[2020-07-25] MEDS ORDERED: traMADol HCl 50 MG TAB PO PRN (13:34)
[2020-07-25] MEDS ORDERED: Sodium Chloride 0.9% 10 ML ONE ×2 (14:06→14:50)
[2020-07-25] MEDS ORDERED: HYDROcodone/Acetaminophen 5/325 mg Tablet ONE (14:24)
[2020-07-25] MEDS: HYDROcodone/Acetaminophen 10/325 mg Tablet PO PRN ×2 (15:55→21:25)
[2020-07-25] MEDS: HumaLOG 300 UNITS/3 ML VIAL SC SCH (18:54)
[2020-07-25] MEDS: Calcium Acetate 667 MG CAP PO SCH (18:56)
[2020-07-25] MEDS: Morphine 2 MG/ML VIAL SLOW IVP PRN (18:56)
[2020-07-25] MEDS: Albuterol Sulfate 2.5 mg/3 ml Neb NEB SCH ×3 (19:01→23:18)
[2020-07-25] MEDS: Mometasone 200 MCG/Formoterol 5 MCG 120 PUFF INHALER INH SCH (20:35)
[2020-07-25] MEDS ORDERED: Gabapentin 100 MG CAP PO SCH (21:00)
[2020-07-25] MEDS ORDERED: Insulin Glargine 24 UNITS in Pre-Filled Syringe 1 EACH SC SCH (21:00)
[2020-07-25] MEDS ORDERED: Rosuvastatin 20 MG TAB PO SCH (21:00)
[2020-07-25] MEDS ORDERED: Non-Formulary Item 1 EACH (Insulin Detemir [Levemir Flextouch] 100 UNIT/ML Insuln.Pen) SQ SCH (21:00)
[2020-07-25] MEDS: Carvedilol 6.25 MG TAB PO SCH (21:23)
[2020-07-25] MEDS: levETIRAcetam 500 MG TAB PO SCH (21:24)
[2020-07-26] MEDS: Morphine 2 MG/ML VIAL SLOW IVP PRN (04:06)
[2020-07-26 05:55] LABS: #Eosinphils 0.3 thou/uL (0.0-0.7); #Lymphocytes 1.8 thou/uL (1.20-3.40); #Monocytes 0.8 thou/uL (0.11-0.59); #Neutrophils 6.9 thou/uL (1.40-6.50); %Basophils 0.2 % (0.0-1.0); %Eosinophils 2.6 % (0.0-10.0); %Lymphocytes 18.2 % (21.0-51.0); %Monocytes 8.5 % (0.0-10.0); %Neutrophils 70.5 % (42.0-75.0); Mean Corpuscular HGB CONC 30.1 g/dL (32.0-36.0); Mean Corpuscular Hemoglobin 28.7 pg (27.0-31.0); Mean Corpuscular Volume 95.1 fL (78.0-98.0); Mean Platelet Volume 7.2 fL (7.4-10.4); Platelet Count 155 thou/uL (130-400); RBC Distribution Width 13.9 % (11.5-14.5); Red Blood Cell (RBC) Count 3.49 mill/uL (4.20-5.40); White Blood Cell (WBC) Count 9.8 thou/uL (4.8-10.8)
[2020-07-26 06:12] LABS: Anion Gap 17 mmol/L (10-20); BUN (Urea Nitrogen) 59 mg/dL (9.8-20.1); Calc. Creatinine Clearance 14 mL/min (70-130); Calcium 8.6 mg/dL (7.8-10.44); Carbon Dioxide 24 mmol/L (23-31); Chloride 99 mmol/L (98-107); Glucose 178 mg/dL (80-115); Potassium 6.1 mmol/L (3.5-5.1); Sodium 134 mmol/L (136-145)
[2020-07-26] MEDS: HYDROcodone/Acetaminophen 10/325 mg Tablet PO PRN ×3 (06:41→17:04)
[2020-07-26] MEDS: Mometasone 200 MCG/Formoterol 5 MCG 120 PUFF INHALER INH SCH (07:12)
[2020-07-26] MEDS: Calcium Acetate 667 MG CAP PO SCH ×2 (08:20→14:21)
[2020-07-26] MEDS: HumaLOG 300 UNITS/3 ML VIAL SC SCH ×2 (08:20→12:00)
[2020-07-26] MEDS ORDERED: Escitalopram Oxalate 20 mg Tablet PO SCH (09:00)
[2020-07-26] MEDS ORDERED: Famotidine 20 MG TAB PO SCH (09:00)
[2020-07-26] MEDS ORDERED: Amlodipine 10 MG TAB PO SCH (09:00)
[2020-07-26] MEDS ORDERED: Heparin 10,000 UNITS/ 10 ML VIAL ONE (10:39)
[2020-07-26] MEDS: Carvedilol 6.25 MG TAB PO SCH (14:20)
[2020-07-26] MEDS: levETIRAcetam 500 MG TAB PO SCH (14:21)
[2020-07-26 16:15] VITALS: BP 103/63; TEMP 97.7
== END 2020-07-26 17:35 | disposition home or self-care (01) ==
LOC: SDC 05:26 → SURG B 13:35
PROVIDERS: ADMIT Specialist; ATTEND Specialist
PROC: 05WYX3Z Revision of Infusion Device in Upper Vein, External Approach (ICD-10-PCS; principal; 2020-07-25)
DX: T82.868A Thrombosis due to vascular prosthetic devices, implants and grafts, initial encounter (principal); I12.0 Hypertensive chronic kidney disease with stage 5 chronic kidney disease or end stage renal disease; E11.22 Type 2 diabetes mellitus with diabetic chronic kidney disease; N18.6 End stage renal disease; I50.9 Heart failure, unspecified; D63.1 Anemia in chronic kidney disease; E66.01 Morbid (severe) obesity due to excess calories; E66.9 Obesity, unspecified; F41.9 Anxiety disorder, unspecified; J44.9 Chronic obstructive pulmonary disease, unspecified; E03.9 Hypothyroidism, unspecified; Z68.38 Body mass index [BMI] 38.0-38.9, adult; Z79.4 Long term (current) use of insulin; Z79.899 Other long term (current) drug therapy; Z88.0 Allergy status to penicillin; Z88.6 Allergy status to analgesic agent; Z91.040 Latex allergy status; Z88.8 Allergy status to other drugs, medicaments and biological substances; Z99.2 Dependence on renal dialysis; Z99.3 Dependence on wheelchair
CPT/HCPCS: 36832; 71045; 80048 ×2; 82962 ×2; 83735; 85025 ×2; 93005; 94640 ×4; 96374; 96376; C1752; G0378 ×2; J2270 ×2; L8670; 36415; 36416; 93010; J1644; J1815; J1956; J2001; J2704; J2720; J3010; J7620; S0020

== ENCOUNTER 2020-07-28 12:58 | Emergency (ER) | payer MEDICARE, MEDICAID, OTHER ==
[2020-07-28 14:20] LABS: PTT 30.4 sec (22.9-36.1); Prothrombin Time 13.1 sec (12.0-14.7)
[2020-07-28 14:20] LABS: #Basophils 0.1 thou/uL (0.0-0.2); #Eosinphils 0.3 thou/uL (0.0-0.7); #Lymphocytes 1.5 thou/uL (1.20-3.40); #Monocytes 0.7 thou/uL (0.11-0.59); #Neutrophils 4.8 thou/uL (1.40-6.50); %Basophils 0.7 % (0.0-1.0); %Eosinophils 4.2 % (0.0-10.0); %Lymphocytes 20.6 % (21.0-51.0); %Monocytes 8.9 % (0.0-10.0); %Neutrophils 65.6 % (42.0-75.0); Hemoglobin 9.7 g/dL (12.0-16.0); Mean Corpuscular HGB CONC 30.6 g/dL (32.0-36.0); Mean Corpuscular Hemoglobin 28.9 pg (27.0-31.0); Mean Corpuscular Volume 94.2 fL (78.0-98.0); Mean Platelet Volume 7.8 fL (7.4-10.4); Platelet Count 133 thou/uL (130-400); RBC Distribution Width 13.9 % (11.5-14.5); Red Blood Cell (RBC) Count 3.37 mill/uL (4.20-5.40); White Blood Cell (WBC) Count 7.4 thou/uL (4.8-10.8)
[2020-07-28 14:42] LABS: ALT (SGPT) Less than 7 U/L (8-55); AST (SGOT) 13 U/L (5-34); Albumin 3.7 g/dL (3.4-4.8); Alkaline Phosphatase 79 U/L (40-110); Anion Gap 16 mmol/L (10-20); BUN (Urea Nitrogen) 26 mg/dL (9.8-20.1); Bilirubin, Total 0.3 mg/dL (0.2-1.2); Calc. Creatinine Clearance 0 mL/min (70-130); Calcium 8.2 mg/dL (7.8-10.44); Carbon Dioxide 26 mmol/L (23-31); Chloride 99 mmol/L (98-107); Glucose 276 mg/dL (80-115); Potassium 4.6 mmol/L (3.5-5.1); Protein, Total 6.7 g/dL (5.8-8.1); Sodium 136 mmol/L (136-145)
[2020-07-28 15:09] LABS: Free T4 (Free Thyroxine) 1.13 ng/dL (0.70-1.48); Thyroid Stimulating Hormone 0.9097 uIU/mL (0.35-4.94)
[2020-07-28] MEDS ORDERED: Ondansetron PF 4 MG/2 ML Vial ONE (15:46)
[2020-07-28] MEDS ORDERED: Morphine 4 MG/ML VIAL ONE (15:46)
[2020-07-28 17:12] LABS: Troponin I 0.028 ng/mL (< 0.028)
== END 2020-07-28 18:22 | disposition home or self-care (01) ==
LOC: ERS 12:58
DX: I80.8 Phlebitis and thrombophlebitis of other sites (principal); L03.113 Cellulitis of right upper limb; J44.9 Chronic obstructive pulmonary disease, unspecified; E11.22 Type 2 diabetes mellitus with diabetic chronic kidney disease; E03.9 Hypothyroidism, unspecified; N18.6 End stage renal disease; Z99.2 Dependence on renal dialysis; Z86.73 Personal history of transient ischemic attack (TIA), and cerebral infarction without residual deficits; Z79.4 Long term (current) use of insulin; Z79.899 Other long term (current) drug therapy
CPT/HCPCS: 36415; 36416; 71045; 80053; 82553; 83735; 83880; 84439; 84443; 84484; 85025; 85610; 85730; 93005; 96374; 96375; J2270; J2405

== ENCOUNTER 2020-08-01 09:06 | Emergency (ER) | payer MEDICARE, MEDICAID, OTHER ==
[~2020-08-01 09:06] MED LIST: Heparin 10,000 UNITS/ 10 ML VIAL ONE
[2020-08-01 10:00] LABS: #Eosinphils 0.2 thou/uL (0.0-0.7); #Lymphocytes 1.7 thou/uL (1.20-3.40); #Monocytes 0.7 thou/uL (0.11-0.59); #Neutrophils 5.6 thou/uL (1.40-6.50); %Basophils 0.2 % (0.0-1.0); %Eosinophils 2.7 % (0.0-10.0); %Lymphocytes 20.4 % (21.0-51.0); %Monocytes 8.6 % (0.0-10.0); %Neutrophils 68.1 % (42.0-75.0); Hemoglobin 9.4 g/dL (12.0-16.0); Mean Corpuscular HGB CONC 30.4 g/dL (32.0-36.0); Mean Corpuscular Volume 95.2 fL (78.0-98.0); Mean Platelet Volume 7.5 fL (7.4-10.4); Platelet Count 161 thou/uL (130-400); RBC Distribution Width 13.3 % (11.5-14.5); Red Blood Cell (RBC) Count 3.23 mill/uL (4.20-5.40); White Blood Cell (WBC) Count 8.2 thou/uL (4.8-10.8)
[2020-08-01 10:19] LABS: ALT (SGPT) Less than 7 U/L (8-55); AST (SGOT) 9 U/L (5-34); Albumin 3.7 g/dL (3.4-4.8); Alkaline Phosphatase 76 U/L (40-110); Anion Gap 21 mmol/L (10-20); BUN (Urea Nitrogen) 73 mg/dL (9.8-20.1); Bilirubin, Total 0.3 mg/dL (0.2-1.2); Calc. Creatinine Clearance 0 mL/min (70-130); Calcium 7.8 mg/dL (7.8-10.44); Carbon Dioxide 25 mmol/L (23-31); Chloride 100 mmol/L (98-107); Globulin 3.1 g/dL (2.4-3.5); Glucose 112 mg/dL (80-115); Potassium 5.6 mmol/L (3.5-5.1); Protein, Total 6.8 g/dL (5.8-8.1); Sodium 140 mmol/L (136-145)
[2020-08-01] MEDS ORDERED: Morphine 4 MG/ML VIAL ONE (12:02)
[2020-08-01] MEDS ORDERED: Acetaminophen 500 MG TAB ONE (17:09)
== END 2020-08-01 17:25 | disposition home or self-care (01) ==
LOC: ERS 09:06
DX: R53.1 Weakness (principal); I13.2 Hypertensive heart and chronic kidney disease with heart failure and with stage 5 chronic kidney disease, or end stage renal disease; I50.9 Heart failure, unspecified; N18.6 End stage renal disease; Z99.2 Dependence on renal dialysis; E11.22 Type 2 diabetes mellitus with diabetic chronic kidney disease; E87.5 Hyperkalemia; J44.9 Chronic obstructive pulmonary disease, unspecified; E03.9 Hypothyroidism, unspecified; D64.9 Anemia, unspecified; Z86.73 Personal history of transient ischemic attack (TIA), and cerebral infarction without residual deficits; Z79.899 Other long term (current) drug therapy; Z79.01 Long term (current) use of anticoagulants; Z79.4 Long term (current) use of insulin
CPT/HCPCS: 36415; 71045; 80053; 84484; 85025; 93005; 93931; 96372; J1644; J2270

== ENCOUNTER 2020-08-08 16:51 | Inpatient (IN) | payer MEDICARE, MEDICAID ==
[2020-08-08] MEDS ORDERED: HYDROcodone/Acetaminophen 10/325 mg Tablet PO PRN (17:43)
[2020-08-08] MEDS ORDERED: Vancomycin 1 GM in Premix Bag 1 BAG IVPB SCH ×2 (18:00→19:45)
[2020-08-08 18:07] VITALS: BMI 39.9
[2020-08-08] MEDS ORDERED: Nitroglycerin 0.4 MG TAB (25 Tab Bottle) SL PRN (19:15)
[2020-08-08] MEDS ORDERED: Vancomycin HCl 1.25 GM in Sodium Chloride 0.9% 250 ML 250 ML IVPB SCH (19:45)
[2020-08-08] MEDS ORDERED: HOLD VANCOMYCIN FOR LEVEL >20 FS SCH (19:45)
[2020-08-08] MEDS ORDERED: Vancomycin HCl 750 MG in Sodium Chloride 0.9% 250 ML 250 ML IVPB SCH (19:45)
[2020-08-08] MEDS ORDERED: Vancomycin HCl 500 MG in Sodium Chloride 0.9% 100 ML IVPB SCH (19:45)
[2020-08-08] MEDS ORDERED: Vancomycin Sliding Scale 1 EACH FS ONE (19:45)
[2020-08-08] MEDS: Rosuvastatin 20 MG TAB PO SCH (20:19)
[2020-08-08] MEDS: levETIRAcetam 500 MG TAB PO SCH (20:20)
[2020-08-08] MEDS: Gabapentin 100 MG CAP PO SCH (20:20)
[2020-08-08] MEDS: Carvedilol 6.25 MG TAB PO SCH (20:21)
[2020-08-08] MEDS: Albuterol Sulfate 2.5 mg/3 ml Neb NEB SCH (22:21)
[2020-08-08 23:00] LABS: Anion Gap 15 mmol/L (10-20); BUN (Urea Nitrogen) 39 mg/dL (9.8-20.1); Calc. Creatinine Clearance 12 mL/min (70-130); Calcium 8.4 mg/dL (7.8-10.44); Carbon Dioxide 28 mmol/L (23-31); Chloride 98 mmol/L (98-107); Glucose 213 mg/dL (80-115); Sodium 136 mmol/L (136-145)
[2020-08-08] MEDS: traMADol HCl 50 MG TAB PO PRN (23:40)
[2020-08-09] MEDS: HYDROcodone/Acetaminophen 10/325 mg Tablet PO PRN ×2 (02:04→17:15)
[2020-08-09] MEDS: Albuterol Sulfate 2.5 mg/3 ml Neb NEB SCH ×2 (02:06→07:51)
[2020-08-09] MEDS: traMADol HCl 50 MG TAB PO PRN ×2 (07:10→19:10)
[2020-08-09] MEDS: Mometasone 200 MCG/Formoterol 5 MCG 120 PUFF INHALER INH SCH ×2 (07:52→18:07)
[2020-08-09] MEDS ORDERED: Nystatin Powder 15 GM BOT TOP PRN (08:30)
[2020-08-09] MEDS: Calcium Acetate 667 MG CAP PO SCH ×3 (13:37→17:11)
[2020-08-09] MEDS ORDERED: Heparin 10,000 UNITS/ 10 ML VIAL ONE (13:54)
[2020-08-09] MEDS ORDERED: Morphine 4 MG/ML VIAL ONE (16:47)
[2020-08-09] MEDS: Carvedilol 6.25 MG TAB PO SCH ×2 (16:54→22:40)
[2020-08-09] MEDS: Amlodipine 10 MG TAB PO SCH (16:54)
[2020-08-09] MEDS: levETIRAcetam 500 MG TAB PO SCH ×2 (16:54→20:54)
[2020-08-09] MEDS: Gabapentin 300 MG CAP PO SCH ×2 (16:54→22:40)
[2020-08-09] MEDS ORDERED: Morphine 4 MG/ML VIAL SLOW IVP SCH (17:00)
[2020-08-09] MEDS: Escitalopram Oxalate 20 mg Tablet PO SCH (17:11)
[2020-08-09] MEDS: Acetaminophen 325 MG TAB PO PRN ×2 (19:10→23:27)
[2020-08-09] MEDS: Gabapentin 100 MG CAP PO SCH (20:53)
[2020-08-09] MEDS: Rosuvastatin 20 MG TAB PO SCH (20:53)
[2020-08-10] MEDS: traMADol HCl 50 MG TAB PO PRN ×3 (03:43→17:31)
[2020-08-10] MEDS: Acetaminophen 325 MG TAB PO PRN (06:21)
[2020-08-10] MEDS: Mometasone 200 MCG/Formoterol 5 MCG 120 PUFF INHALER INH SCH ×2 (07:52→18:27)
[2020-08-10] MEDS: Amlodipine 10 MG TAB PO SCH (08:23)
[2020-08-10] MEDS: Carvedilol 6.25 MG TAB PO SCH ×2 (08:24→20:39)
[2020-08-10] MEDS: Gabapentin 300 MG CAP PO SCH ×2 (08:27→21:08)
[2020-08-10] MEDS: levETIRAcetam 500 MG TAB PO SCH ×2 (08:27→20:33)
[2020-08-10] MEDS: Escitalopram Oxalate 20 mg Tablet PO SCH (08:27)
[2020-08-10] MEDS: Calcium Acetate 667 MG CAP PO SCH ×3 (08:27→17:31)
[2020-08-10] MEDS: HYDROcodone/Acetaminophen 10/325 mg Tablet PO PRN (11:39)
[2020-08-10] MEDS: Rosuvastatin 20 MG TAB PO SCH (20:33)
[2020-08-10] MEDS: Gabapentin 100 MG CAP PO SCH (20:34)
[2020-08-11] MEDS: traMADol HCl 50 MG TAB PO PRN ×3 (04:20→17:13)
[2020-08-11] MEDS: Mometasone 200 MCG/Formoterol 5 MCG 120 PUFF INHALER INH SCH (07:19)
[2020-08-11 07:53] VITALS: TEMP 97.8
[2020-08-11] MEDS: levETIRAcetam 500 MG TAB PO SCH (08:30)
[2020-08-11] MEDS: Escitalopram Oxalate 20 mg Tablet PO SCH (08:31)
[2020-08-11] MEDS: Carvedilol 6.25 MG TAB PO SCH (08:31)
[2020-08-11] MEDS: Gabapentin 300 MG CAP PO SCH (08:31)
[2020-08-11] MEDS: Calcium Acetate 667 MG CAP PO SCH ×3 (08:31→17:13)
[2020-08-11] MEDS: HYDROcodone/Acetaminophen 10/325 mg Tablet PO PRN ×2 (08:32→13:11)
[2020-08-11] MEDS: Amlodipine 10 MG TAB PO SCH (08:35)
[2020-08-11 08:46] LABS: Vancomycin, Random 7.2 ug/mL (See Comment)
[2020-08-11 11:36] VITALS: BP 103/58
[2020-08-11] MEDS ORDERED: Heparin 10,000 UNITS/ 10 ML VIAL ONE (13:44)
== END 2020-08-11 18:24 | DRG 637 ==
LOC: SURG B 17:01
PROVIDERS: ADMIT Specialist; ATTEND Specialist
PROC: 5A1D70Z Performance of Urinary Filtration, Intermittent, Less than 6 Hours Per Day (ICD-10-PCS; principal; 2020-08-09)
DX: E11.628 Type 2 diabetes mellitus with other skin complications (principal); J96.01 Acute respiratory failure with hypoxia; L02.411 Cutaneous abscess of right axilla; I13.2 Hypertensive heart and chronic kidney disease with heart failure and with stage 5 chronic kidney disease, or end stage renal disease; N18.6 End stage renal disease; Z20.822 Contact with and (suspected) exposure to COVID-19; E11.22 Type 2 diabetes mellitus with diabetic chronic kidney disease; I50.9 Heart failure, unspecified; J44.9 Chronic obstructive pulmonary disease, unspecified; E03.9 Hypothyroidism, unspecified; E66.9 Obesity, unspecified; E83.39 Other disorders of phosphorus metabolism; D63.1 Anemia in chronic kidney disease; Z88.1 Allergy status to other antibiotic agents; Z68.39 Body mass index [BMI] 39.0-39.9, adult; Z99.2 Dependence on renal dialysis; Z88.0 Allergy status to penicillin; Z88.8 Allergy status to other drugs, medicaments and biological substances; Z79.4 Long term (current) use of insulin; Z79.51 Long term (current) use of inhaled steroids; Z79.899 Other long term (current) drug therapy; Z91.19 Patient's noncompliance with other medical treatment and regimen
CPT/HCPCS: 36415; 36416; 80202; 82565; 87070; 87205; 90935; 94640; G0257; J1644; J2270; J3370; J7611; J7620

== ENCOUNTER 2020-08-14 09:58 | Observation (INO) | payer MEDICARE, OTHER ==
[2020-08-14 10:57] LABS: #Basophils 0.1 thou/uL (0.0-0.2); #Eosinphils 0.2 thou/uL (0.0-0.7); #Lymphocytes 2.3 thou/uL (1.20-3.40); #Monocytes 0.7 thou/uL (0.11-0.59); #Neutrophils 4.5 thou/uL (1.40-6.50); %Basophils 1.1 % (0.0-1.0); %Eosinophils 3.1 % (0.0-10.0); %Lymphocytes 28.9 % (21.0-51.0); %Monocytes 8.9 % (0.0-10.0); Hemoglobin 10.2 g/dL (12.0-16.0); Mean Corpuscular HGB CONC 30.3 g/dL (32.0-36.0); Mean Corpuscular Hemoglobin 28.9 pg (27.0-31.0); Mean Corpuscular Volume 95.4 fL (78.0-98.0); Mean Platelet Volume 7.5 fL (7.4-10.4); Platelet Count 180 thou/uL (130-400); RBC Distribution Width 13.9 % (11.5-14.5); Red Blood Cell (RBC) Count 3.52 mill/uL (4.20-5.40); White Blood Cell (WBC) Count 7.8 thou/uL (4.8-10.8)
[2020-08-14] MEDS ORDERED: Morphine 4 MG/ML VIAL ONE (11:07)
[2020-08-14 11:19] LABS: ALT (SGPT) Less than 7 U/L (8-55); AST (SGOT) 20 U/L (5-34); Albumin 3.8 g/dL (3.4-4.8); Alkaline Phosphatase 75 U/L (40-110); Anion Gap 18 mmol/L (10-20); BUN (Urea Nitrogen) 21 mg/dL (9.8-20.1); Bilirubin, Total 0.4 mg/dL (0.2-1.2); Calc. Creatinine Clearance 0 mL/min (70-130); Calcium 9.2 mg/dL (7.8-10.44); Carbon Dioxide 30 mmol/L (23-31); Chloride 98 mmol/L (98-107); Globulin 3.7 g/dL (2.4-3.5); Glucose 101 mg/dL (80-115); Potassium 4.5 mmol/L (3.5-5.1); Protein, Total 7.5 g/dL (5.8-8.1); Sodium 141 mmol/L (136-145)
[2020-08-14] MEDS ORDERED: Ondansetron ODT 4 MG TAB PO PRN (13:55)
[2020-08-14] MEDS ORDERED: Acetaminophen 325 MG TAB PO PRN (13:55)
[2020-08-14] MEDS ORDERED: Senokot S 8.6-50 MG TAB PO PRN (13:55)
[2020-08-14] MEDS ORDERED: HumaLOG 300 UNITS/3 ML VIAL SC PRN (14:03)
[2020-08-14] MEDS ORDERED: Dextrose 50% Abboject 50 ML SYRINGE SLOW IVP PRN (14:03)
[2020-08-14] MEDS ORDERED: Dextrose 5% in Water 1,000 ML IV PRN (14:03)
[2020-08-14] MEDS ORDERED: Ketorolac Tromethamine 30 MG/ML VIAL ONE (14:18)
[2020-08-14 16:43] VITALS: BMI 39.9
[2020-08-14] MEDS: Calcium Acetate 667 MG CAP PO SCH (16:49)
[2020-08-14] MEDS: HumaLOG 300 UNITS/3 ML VIAL SC SCH (16:50)
[2020-08-14] MEDS ORDERED: Albuterol Sulfate 1.25 MG/3 ML NEB NEB SCH (17:00)
[2020-08-14] MEDS: HYDROcodone/Acetaminophen 10/325 mg Tablet PO PRN ×2 (17:06→21:34)
[2020-08-14] MEDS: Albuterol 200 PUFF (6.7GM INHALER) INH SCH ×2 (19:05→22:24)
[2020-08-14] MEDS: Mometasone 200 MCG/Formoterol 5 MCG 120 PUFF INHALER INH SCH (19:05)
[2020-08-14 21:10] LABS: SARS-CoV-2 PCR by NAA Not Detected (NotDetected)
[2020-08-14] MEDS: levETIRAcetam 500 MG TAB PO SCH (21:37)
[2020-08-14] MEDS: Carvedilol 6.25 MG TAB PO SCH (21:38)
[2020-08-14] MEDS: Gabapentin 100 MG CAP PO SCH (21:38)
[2020-08-14] MEDS: Rosuvastatin 20 MG TAB PO SCH (21:38)
[2020-08-14] MEDS: Gabapentin 300 MG CAP PO SCH (21:39)
[2020-08-14] MEDS: Lantus 1000 UNITS/10 ML VIAL SC SCH (21:48)
[2020-08-15] MEDS: HYDROcodone/Acetaminophen 10/325 mg Tablet PO PRN ×5 (01:21→21:10)
[2020-08-15] MEDS: Albuterol 200 PUFF (6.7GM INHALER) INH SCH ×6 (02:47→23:15)
[2020-08-15] MEDS: Mometasone 200 MCG/Formoterol 5 MCG 120 PUFF INHALER INH SCH ×2 (06:48→18:41)
[2020-08-15] MEDS: HumaLOG 300 UNITS/3 ML VIAL SC SCH ×3 (08:22→18:34)
[2020-08-15] MEDS: Amlodipine 10 MG TAB PO SCH (08:23)
[2020-08-15] MEDS: levETIRAcetam 500 MG TAB PO SCH ×2 (08:23→21:03)
[2020-08-15] MEDS: Escitalopram Oxalate 20 mg Tablet PO SCH (08:23)
[2020-08-15] MEDS: Calcium Acetate 667 MG CAP PO SCH ×3 (08:23→18:33)
[2020-08-15] MEDS: Gabapentin 300 MG CAP PO SCH ×2 (08:24→21:04)
[2020-08-15] MEDS: Carvedilol 6.25 MG TAB PO SCH ×2 (08:24→21:05)
[2020-08-15] MEDS ORDERED: FLU VACC QS2020-21(65YR UP)/PF 240 MCG/0.7 ML SYRINGE IM ONE (09:00)
[2020-08-15] MEDS ORDERED: Lidocaine 5% Patch TD SCH (09:00)
[2020-08-15] MEDS ORDERED: Vancomycin 1 GM in Premix Bag 1 BAG IVPB SCH (10:30)
[2020-08-15] MEDS ORDERED: Vancomycin HCl 500 MG in Sodium Chloride 0.9% 100 ML IVPB SCH (10:30)
[2020-08-15] MEDS ORDERED: Vancomycin Sliding Scale 1 EACH FS SCH (10:30)
[2020-08-15] MEDS ORDERED: Vancomycin HCl 750 MG in Sodium Chloride 0.9% 250 ML 250 ML IVPB SCH (10:30)
[2020-08-15] MEDS ORDERED: VANCOMYCIN 2 GRAM/400 ML BAG 2 GM in Premix Bag 1 BAG IVPB SCH (10:30)
[2020-08-15] MEDS ORDERED: HOLD VANCOMYCIN FOR LEVEL >20 FS SCH (10:30)
[2020-08-15] MEDS ORDERED: Vancomycin HCl 1.25 GM in Sodium Chloride 0.9% 250 ML 250 ML IVPB SCH (10:30)
[2020-08-15] MEDS ORDERED: Transdermal Patch Removal TOP SCH (21:00)
[2020-08-15] MEDS: Rosuvastatin 20 MG TAB PO SCH (21:03)
[2020-08-15] MEDS: Gabapentin 100 MG CAP PO SCH (21:04)
[2020-08-15] MEDS: Lantus 1000 UNITS/10 ML VIAL SC SCH (21:05)
[2020-08-16] MEDS: HYDROcodone/Acetaminophen 10/325 mg Tablet PO PRN (02:48)
[2020-08-16] MEDS: Albuterol 200 PUFF (6.7GM INHALER) INH SCH ×3 (02:56→10:49)
[2020-08-16 06:46] LABS: Anion Gap 17 mmol/L (10-20); BUN (Urea Nitrogen) 43 mg/dL (9.8-20.1); Calc. Creatinine Clearance 10 mL/min (70-130); Calcium 8.3 mg/dL (7.8-10.44); Carbon Dioxide 28 mmol/L (23-31); Chloride 98 mmol/L (98-107); Glucose 144 mg/dL (80-115); Sodium 138 mmol/L (136-145)
[2020-08-16] MEDS: Mometasone 200 MCG/Formoterol 5 MCG 120 PUFF INHALER INH SCH (07:18)
[2020-08-16] MEDS: Amlodipine 10 MG TAB PO SCH (09:10)
[2020-08-16] MEDS: HumaLOG 300 UNITS/3 ML VIAL SC SCH ×2 (09:10→16:04)
[2020-08-16] MEDS: Calcium Acetate 667 MG CAP PO SCH ×2 (09:10→16:04)
[2020-08-16] MEDS: Carvedilol 6.25 MG TAB PO SCH (09:11)
[2020-08-16] MEDS: Gabapentin 300 MG CAP PO SCH (09:11)
[2020-08-16] MEDS: Escitalopram Oxalate 20 mg Tablet PO SCH (09:11)
[2020-08-16] MEDS: levETIRAcetam 500 MG TAB PO SCH (09:11)
[2020-08-16] MEDS ORDERED: Albumin 25% 25 GM/100 ML BOT IVPB SCH (09:15)
[2020-08-16 15:47] VITALS: BP 106/56; TEMP 98.2
== END 2020-08-16 16:55 | disposition home or self-care (01) ==
LOC: ERS 09:58 → SURG A 12:35 → INTOOBSV 12:35
PROVIDERS: ADMIT Internal Medicine; ATTEND Internal Medicine
DX: T85.698A Other mechanical complication of other specified internal prosthetic devices, implants and grafts, initial encounter (principal); L02.411 Cutaneous abscess of right axilla; I12.0 Hypertensive chronic kidney disease with stage 5 chronic kidney disease or end stage renal disease; E11.22 Type 2 diabetes mellitus with diabetic chronic kidney disease; N18.6 End stage renal disease; D63.1 Anemia in chronic kidney disease; E03.9 Hypothyroidism, unspecified; J44.9 Chronic obstructive pulmonary disease, unspecified; E66.9 Obesity, unspecified; Z68.39 Body mass index [BMI] 39.0-39.9, adult; Z86.73 Personal history of transient ischemic attack (TIA), and cerebral infarction without residual deficits; Z79.4 Long term (current) use of insulin; Z79.899 Other long term (current) drug therapy; Z88.0 Allergy status to penicillin; Z88.6 Allergy status to analgesic agent; Z88.8 Allergy status to other drugs, medicaments and biological substances; Z91.040 Latex allergy status; Z99.2 Dependence on renal dialysis; Z20.822 Contact with and (suspected) exposure to COVID-19
CPT/HCPCS: 80048; 80053; 80202; 82962 ×3; 84484; 85025; 93005; 93931; 94640 ×3; 96374; 96375 ×2; 97139 ×4; 99285; G0378 ×4; U0003; U0005; 36415; 36416; 87635; 90935; G0257; J1815; J1885; J2270; J3370

== ENCOUNTER 2020-08-17 10:46 | Inpatient (IN) | payer MEDICARE, OTHER ==
[2020-08-17] MEDS ORDERED: Morphine 4 MG/ML VIAL ONE ×2 (11:44→14:05)
[2020-08-17 11:52] LABS: ALT (SGPT) Less than 7 U/L (8-55); AST (SGOT) 16 U/L (5-34); Albumin 3.5 g/dL (3.4-4.8); Alkaline Phosphatase 72 U/L (40-110); Anion Gap 15 mmol/L (10-20); BUN (Urea Nitrogen) 28 mg/dL (9.8-20.1); Bilirubin, Total 0.3 mg/dL (0.2-1.2); CK (CPK) 183 U/L (29-168); Calc. Creatinine Clearance 0 mL/min (70-130); Carbon Dioxide 27 mmol/L (23-31); Chloride 102 mmol/L (98-107); Globulin 2.7 g/dL (2.4-3.5); Glucose 96 mg/dL (80-115); Lipase 31 U/L (8-78); Potassium 4.5 mmol/L (3.5-5.1); Protein, Total 6.2 g/dL (5.8-8.1); Sodium 139 mmol/L (136-145)
[2020-08-17 12:15] LABS: CKMB 2.4 ng/mL (0-6.6)
[2020-08-17 12:31] LABS: Hemoglobin 8.9 g/dL (12.0-16.0); Mean Corpuscular HGB CONC 28.4 g/dL (32.0-36.0); Mean Corpuscular Hemoglobin 27.1 pg (27.0-31.0); Mean Corpuscular Volume 95.5 fL (78.0-98.0); Mean Platelet Volume 8.3 fL (7.4-10.4); Platelet Count 142 thou/uL (130-400); RBC Distribution Width 13.7 % (11.5-14.5); Red Blood Cell (RBC) Count 3.27 mill/uL (4.20-5.40); White Blood Cell (WBC) Count 9.2 thou/uL (4.8-10.8)
[2020-08-17 12:32] LABS: #Basophils 0.1 thou/uL (0.0-0.2); #Eosinphils 0.2 thou/uL (0.0-0.7); #Monocytes 0.7 thou/uL (0.11-0.59); #Neutrophils 6.2 thou/uL (1.40-6.50); %Basophils 0.7 % (0.0-1.0); %Eosinophils 2.5 % (0.0-10.0); %Lymphocytes 21.3 % (21.0-51.0); %Neutrophils 67.5 % (42.0-75.0)
[2020-08-17 13:00] LABS: Hypochromia SLIGHT = 6-15 cells (100X) (0-5/hpf); MDiff Complete? YES; Platelet Morphology Comment Appears Adequate; Polychromasia SLIGHT = 2-3 cells (100X) (0-2/hpf); Target Cells SLIGHT = 2-5 cells (100X) (0-1/hpf)
[2020-08-17 14:09] LABS: Bacteria/HPF None Seen HPF (None Seen); Bilirubin Negative (Negative); Blood, Urine 2+ (Negative); Clarity Turbid (Clear); Glucose, Urine (Dipstick) Normal (Negative); Ketone, Urine Negative (Negative); Leukocyte 75 Leu/uL (Negative); Nitrite Negative (Negative); Protein, Urine (Dipstick) 300 mg/dL (Neg-Trace); Specific Gravity, Urine 1.026 (1.002-1.036); Urobilinogen Normal mg/dL (Less than 2); WBC/HPF 21-50 HPF (0-3); pH, Urine 5.5 (5.0-9.0)
[2020-08-17] MEDS ORDERED: Iopamidol-370 76% 500 ML 1 ML ONE (14:51)
[2020-08-17] MEDS ORDERED: cefTRIAXone\\ROCEPHIN 1 GM VIAL ONE (15:06)
[2020-08-17] MEDS ORDERED: Ondansetron ODT 4 MG TAB PO PRN (15:44)
[2020-08-17] MEDS ORDERED: hydrALAZINE 20 MG/ML VIAL SLOW IVP PRN (15:44)
[2020-08-17] MEDS ORDERED: Ondansetron PF 4 MG/2 ML Vial IVP PRN (15:44)
[2020-08-17] MEDS ORDERED: Cyclobenzaprine 10 MG TAB PO PRN (15:44)
[2020-08-17] MEDS ORDERED: Dextrose 50% Abboject 50 ML SYRINGE SLOW IVP PRN (15:44)
[2020-08-17] MEDS ORDERED: Dextrose 5% in Water 1,000 ML IV PRN (15:44)
[2020-08-17] MEDS ORDERED: Acetaminophen 500 MG TAB PO SCH (16:00)
[2020-08-17] MEDS ORDERED: traMADol HCl 50 MG TAB PO SCH (16:00)
[2020-08-17] MEDS: Famotidine 20 MG TAB PO SCH (19:21)
[2020-08-17] MEDS ORDERED: Acetaminophen/Codeine 30-300mg Tablet PO PRN (19:35)
[2020-08-17] MEDS ORDERED: Insulin Regular 300 UNITS/3 ML VIAL SC PRN (19:57)
[2020-08-17] MEDS ORDERED: HYDROcodone/Acetaminophen 7.5/325 mg Tablet PO PRN (21:53)
[2020-08-17] MEDS ORDERED: Acetaminophen 325 MG TAB PO SCH (22:00)
[2020-08-17 22:57] VITALS: BMI 42.9
[2020-08-17] MEDS: Acetaminophen/Codeine 30-300mg Tablet PO SCH (23:48)
[2020-08-17] MEDS: Acetaminophen 325 MG TAB PO SCH (23:48)
[2020-08-18 02:33] LABS: SARS-CoV-2 PCR by NAA Not Detected (NotDetected)
[2020-08-18] MEDS: Acetaminophen 325 MG TAB PO SCH ×3 (05:08→18:44)
[2020-08-18] MEDS: Acetaminophen/Codeine 30-300mg Tablet PO SCH ×3 (05:08→18:42)
[2020-08-18 06:11] LABS: Anion Gap 15 mmol/L (10-20); BUN (Urea Nitrogen) 36 mg/dL (9.8-20.1); Calc. Creatinine Clearance 12 mL/min (70-130); Calcium 8.1 mg/dL (7.8-10.44); Carbon Dioxide 26 mmol/L (23-31); Chloride 101 mmol/L (98-107); Glucose 188 mg/dL (80-115); Magnesium 1.9 mg/dL (1.6-2.6); Potassium 4.2 mmol/L (3.5-5.1); Sodium 138 mmol/L (136-145)
[2020-08-18 06:17] LABS: #Basophils 0.1 thou/uL (0.0-0.2); #Eosinphils 0.2 thou/uL (0.0-0.7); #Monocytes 0.8 thou/uL (0.11-0.59); %Lymphocytes 25.2 % (21.0-51.0); %Monocytes 9.4 % (0.0-10.0); %Neutrophils 61.4 % (42.0-75.0); Hypochromia SLIGHT = 6-15 cells (100X) (0-5/hpf); MDiff Complete? YES; Mean Corpuscular Hemoglobin 28.5 pg (27.0-31.0); Mean Platelet Volume 7.9 fL (7.4-10.4); Platelet Count 136 thou/uL (130-400); RBC Distribution Width 13.7 % (11.5-14.5); Red Blood Cell (RBC) Count 3.15 mill/uL (4.20-5.40); White Blood Cell (WBC) Count 8.1 thou/uL (4.8-10.8)
[2020-08-18] MEDS: Mometasone 200 MCG/Formoterol 5 MCG 120 PUFF INHALER INH SCH ×2 (07:49→18:24)
[2020-08-18] MEDS: Escitalopram Oxalate 20 mg Tablet PO SCH (12:47)
[2020-08-18] MEDS: Carvedilol 6.25 MG TAB PO SCH ×2 (12:47→20:25)
[2020-08-18] MEDS: Amlodipine 10 MG TAB PO SCH (12:47)
[2020-08-18] MEDS: Gabapentin 300 MG CAP PO SCH ×2 (12:47→20:25)
[2020-08-18] MEDS: levETIRAcetam 500 MG TAB PO SCH ×2 (12:48→20:25)
[2020-08-18] MEDS: EPOETIN ALFA-EPBX (ESRD) 10,000 UNIT/ML VIAL IVP SCH (12:49)
[2020-08-18] MEDS: HYDROcodone/Acetaminophen 7.5/325 mg Tablet PO PRN ×2 (12:54→18:44)
[2020-08-18] MEDS: Heparin 5,000 UNITS/ML VIAL SC SCH ×2 (16:16→20:26)
[2020-08-18] MEDS: Insulin Regular 300 UNITS/3 ML VIAL SC PRN (18:33)
[2020-08-18] MEDS: Gabapentin 100 MG CAP PO SCH (20:24)
[2020-08-18] MEDS: Rosuvastatin 20 MG TAB PO SCH (20:24)
[2020-08-18] MEDS: Famotidine 20 MG TAB PO SCH (20:27)
[2020-08-19] MEDS: Acetaminophen 325 MG TAB PO SCH ×5 (00:10→23:31)
[2020-08-19] MEDS: Acetaminophen/Codeine 30-300mg Tablet PO SCH ×5 (00:10→23:31)
[2020-08-19] MEDS: HYDROcodone/Acetaminophen 7.5/325 mg Tablet PO PRN ×4 (02:12→20:30)
[2020-08-19] MEDS: Mometasone 200 MCG/Formoterol 5 MCG 120 PUFF INHALER INH SCH ×2 (07:51→18:35)
[2020-08-19] MEDS: Amlodipine 10 MG TAB PO SCH (09:19)
[2020-08-19] MEDS: Carvedilol 6.25 MG TAB PO SCH ×2 (09:20→20:11)
[2020-08-19] MEDS: Escitalopram Oxalate 20 mg Tablet PO SCH (09:40)
[2020-08-19] MEDS: Gabapentin 300 MG CAP PO SCH ×2 (09:40→20:31)
[2020-08-19] MEDS: levETIRAcetam 500 MG TAB PO SCH ×2 (09:40→20:32)
[2020-08-19] MEDS: Heparin 5,000 UNITS/ML VIAL SC SCH ×3 (09:41→20:30)
[2020-08-19] MEDS: Insulin Regular 300 UNITS/3 ML VIAL SC PRN (11:36)
[2020-08-19] MEDS ORDERED: Vancomycin Sliding Scale 1 EACH FS ONE (18:15)
[2020-08-19] MEDS ORDERED: HOLD VANCOMYCIN FOR LEVEL >20 FS SCH (18:15)
[2020-08-19] MEDS ORDERED: VANCOMYCIN 1.25 GM/250 ML BAG 1.25 GM in Premix Bag 1 BAG IVPB SCH (18:15)
[2020-08-19] MEDS ORDERED: Vancomycin 1.5 GRAM/300 ML BAG 1.5 GM in Premix Bag 1 BAG IVPB SCH (18:15)
[2020-08-19] MEDS ORDERED: Vancomycin HCl 750 MG in Sodium Chloride 0.9% 250 ML 250 ML IVPB SCH (18:15)
[2020-08-19] MEDS ORDERED: Vancomycin 1 GM in Premix Bag 1 BAG IVPB SCH (18:15)
[2020-08-19] MEDS: Gabapentin 100 MG CAP PO SCH (20:31)
[2020-08-19] MEDS: Rosuvastatin 20 MG TAB PO SCH (20:32)
[2020-08-19] MEDS: Famotidine 20 MG TAB PO SCH (20:33)
[2020-08-20] MEDS: Acetaminophen 325 MG TAB PO SCH ×3 (05:38→18:37)
[2020-08-20] MEDS: Acetaminophen/Codeine 30-300mg Tablet PO SCH ×3 (05:38→18:37)
[2020-08-20] MEDS: HYDROcodone/Acetaminophen 7.5/325 mg Tablet PO PRN ×3 (07:45→15:58)
[2020-08-20] MEDS: Mometasone 200 MCG/Formoterol 5 MCG 120 PUFF INHALER INH SCH ×2 (08:19→18:25)
[2020-08-20] MEDS: Carvedilol 6.25 MG TAB PO SCH ×2 (08:54→19:46)
[2020-08-20] MEDS: Amlodipine 10 MG TAB PO SCH (08:54)
[2020-08-20] MEDS: Escitalopram Oxalate 20 mg Tablet PO SCH (08:55)
[2020-08-20] MEDS: levETIRAcetam 500 MG TAB PO SCH ×2 (08:55→20:42)
[2020-08-20] MEDS: Gabapentin 300 MG CAP PO SCH ×2 (08:55→20:41)
[2020-08-20] MEDS: Heparin 5,000 UNITS/ML VIAL SC SCH ×3 (08:56→20:43)
[2020-08-20] MEDS ORDERED: Albumin 25% 25 GM/100 ML BOT IVPB SCH (11:00)
[2020-08-20 11:07] LABS: HBSAg Index 0.15 S/CO (0-0.99); Hep B Surf Ag Non-Reactive S/CO (NonReactive)
[2020-08-20] MEDS: EPOETIN ALFA-EPBX (ESRD) 10,000 UNIT/ML VIAL IVP SCH (11:13)
[2020-08-20 11:23] LABS: HBSAB Concentration 23.49 mIU/mL; Hep B Surf AB Reactive (NonReactive)
[2020-08-20] MEDS ORDERED: Heparin 10,000 UNITS/ 10 ML VIAL ONE (13:37)
[2020-08-20] MEDS: Famotidine 20 MG TAB PO SCH (20:40)
[2020-08-20] MEDS: Gabapentin 100 MG CAP PO SCH (20:40)
[2020-08-20] MEDS: Polyethylene Glycol 3350 17 GM Packet PO SCH ×2 (20:40)
[2020-08-20] MEDS: Rosuvastatin 20 MG TAB PO SCH (20:43)
[2020-08-20] MEDS: Senokot 8.6 MG TAB PO SCH (20:43)
[2020-08-21] MEDS: Acetaminophen 325 MG TAB PO SCH ×5 (00:19→23:20)
[2020-08-21] MEDS: Acetaminophen/Codeine 30-300mg Tablet PO SCH ×5 (00:20→23:20)
[2020-08-21] MEDS: Mometasone 200 MCG/Formoterol 5 MCG 120 PUFF INHALER INH SCH ×2 (08:02→18:29)
[2020-08-21] MEDS: Senokot 8.6 MG TAB PO SCH ×2 (09:11→20:31)
[2020-08-21] MEDS: Gabapentin 300 MG CAP PO SCH ×2 (09:11→20:32)
[2020-08-21] MEDS: levETIRAcetam 500 MG TAB PO SCH ×2 (09:14→20:32)
[2020-08-21] MEDS: Carvedilol 6.25 MG TAB PO SCH ×2 (09:15→20:24)
[2020-08-21] MEDS: Amlodipine 10 MG TAB PO SCH (09:16)
[2020-08-21] MEDS: Escitalopram Oxalate 20 mg Tablet PO SCH (09:16)
[2020-08-21] MEDS: Heparin 5,000 UNITS/ML VIAL SC SCH ×3 (09:19→20:31)
[2020-08-21] MEDS: Polyethylene Glycol 3350 17 GM Packet PO SCH (09:20)
[2020-08-21] MEDS: HYDROcodone/Acetaminophen 7.5/325 mg Tablet PO PRN ×2 (09:25→19:29)
[2020-08-21] MEDS ORDERED: Artificial Tear Sol 15 ML BOT EA EYE PRN (10:25)
[2020-08-21 12:37] LABS: Anion Gap 15 mmol/L (10-20); BUN (Urea Nitrogen) 30 mg/dL (9.8-20.1); Calc. Creatinine Clearance 15 mL/min (70-130); Calcium 8.5 mg/dL (7.8-10.44); Carbon Dioxide 28 mmol/L (23-31); Chloride 98 mmol/L (98-107); Glucose 146 mg/dL (80-115); Potassium 4.7 mmol/L (3.5-5.1); Sodium 136 mmol/L (136-145)
[2020-08-21] MEDS: Rosuvastatin 20 MG TAB PO SCH (20:31)
[2020-08-21] MEDS: Famotidine 20 MG TAB PO SCH (20:31)
[2020-08-21] MEDS: Gabapentin 100 MG CAP PO SCH (20:32)
[2020-08-22] MEDS: Acetaminophen/Codeine 30-300mg Tablet PO SCH (05:36)
[2020-08-22] MEDS: Acetaminophen 325 MG TAB PO SCH (05:36)
[2020-08-22] MEDS: Mometasone 200 MCG/Formoterol 5 MCG 120 PUFF INHALER INH SCH ×2 (07:54→18:29)
[2020-08-22] MEDS: Senokot 8.6 MG TAB PO SCH ×2 (08:57→20:57)
[2020-08-22] MEDS: levETIRAcetam 500 MG TAB PO SCH ×2 (08:57→20:57)
[2020-08-22] MEDS: Escitalopram Oxalate 20 mg Tablet PO SCH (08:57)
[2020-08-22] MEDS: Gabapentin 300 MG CAP PO SCH ×2 (08:58→20:58)
[2020-08-22] MEDS: Polyethylene Glycol 3350 17 GM Packet PO SCH (08:58)
[2020-08-22] MEDS: Heparin 5,000 UNITS/ML VIAL SC SCH ×3 (08:59→20:58)
[2020-08-22] MEDS: Amlodipine 10 MG TAB PO SCH (09:00)
[2020-08-22] MEDS: Carvedilol 6.25 MG TAB PO SCH ×2 (09:00→20:48)
[2020-08-22] MEDS: HYDROcodone/Acetaminophen 7.5/325 mg Tablet PO PRN ×2 (14:50→20:57)
[2020-08-22] MEDS: Famotidine 20 MG TAB PO SCH (20:56)
[2020-08-22] MEDS: Rosuvastatin 20 MG TAB PO SCH (20:56)
[2020-08-22] MEDS: Gabapentin 100 MG CAP PO SCH (20:58)
[2020-08-23] MEDS: HYDROcodone/Acetaminophen 7.5/325 mg Tablet PO PRN ×2 (02:21→08:52)
[2020-08-23] MEDS: Mometasone 200 MCG/Formoterol 5 MCG 120 PUFF INHALER INH SCH (07:58)
[2020-08-23 08:22] VITALS: TEMP 97.9
[2020-08-23] MEDS: Carvedilol 6.25 MG TAB PO SCH (08:25)
[2020-08-23 08:26] VITALS: BP 89/54
[2020-08-23] MEDS: Senokot 8.6 MG TAB PO SCH (08:33)
[2020-08-23] MEDS: levETIRAcetam 500 MG TAB PO SCH (08:34)
[2020-08-23] MEDS: Gabapentin 300 MG CAP PO SCH (08:34)
[2020-08-23] MEDS: Escitalopram Oxalate 20 mg Tablet PO SCH (08:34)
[2020-08-23] MEDS: Heparin 5,000 UNITS/ML VIAL SC SCH ×2 (08:35→17:17)
[2020-08-23] MEDS: Polyethylene Glycol 3350 17 GM Packet PO SCH (08:35)
[2020-08-23] MEDS: EPOETIN ALFA-EPBX (ESRD) 10,000 UNIT/ML VIAL IVP SCH (08:36)
[2020-08-23] MEDS ORDERED: Heparin 10,000 UNITS/ 10 ML VIAL ONE (10:31)
[2020-08-23 10:47] LABS: Hemoglobin 8.7 g/dL (12.0-16.0); Mean Corpuscular HGB CONC 30.6 g/dL (32.0-36.0); Mean Corpuscular Hemoglobin 28.8 pg (27.0-31.0); Mean Corpuscular Volume 94.2 fL (78.0-98.0); Mean Platelet Volume 6.9 fL (7.4-10.4); Platelet Count 206 thou/uL (130-400); RBC Distribution Width 14.4 % (11.5-14.5); Red Blood Cell (RBC) Count 3.04 mill/uL (4.20-5.40); White Blood Cell (WBC) Count 8.7 thou/uL (4.8-10.8)
[2020-08-23 11:02] LABS: Vancomycin, Random 14.8 ug/mL (See Comment)
[2020-08-23 11:28] LABS: Eosinophils 4 % (0-10); Lymphocytes 28 % (21-51); MDiff Complete? YES; Monocytes 12 % (0-10); Neutrophil 56 % (42-75); Platelet Morphology Comment Appears Adequate; Polychromasia SLIGHT = 2-3 cells (100X) (0-2/hpf)
[2020-08-23] MEDS ORDERED: Midazolam HCl 2 mg/2 ml Vial SLOW IVP SCH (12:45)
[2020-08-23] MEDS ORDERED: Vancomycin 1 GM in Premix Bag 1 BAG IVPB SCH (14:00)
== END 2020-08-23 19:23 | DRG 551 ==
LOC: ERS 10:46 → ONC 15:44 → OBSVTOIN 15:44
PROVIDERS: ADMIT Surgery; ATTEND Surgery
PROC: 5A1D70Z Performance of Urinary Filtration, Intermittent, Less than 6 Hours Per Day (ICD-10-PCS; principal; 2020-08-20)
DX: S22.079A Unspecified fracture of T9-T10 vertebra, initial encounter for closed fracture (principal); N18.6 End stage renal disease; S32.10XA Unspecified fracture of sacrum, initial encounter for closed fracture; N39.0 Urinary tract infection, site not specified; I12.0 Hypertensive chronic kidney disease with stage 5 chronic kidney disease or end stage renal disease; I69.351 Hemiplegia and hemiparesis following cerebral infarction affecting right dominant side; Z68.42 Body mass index [BMI] 45.0-49.9, adult; L02.413 Cutaneous abscess of right upper limb; Z20.822 Contact with and (suspected) exposure to COVID-19; D63.1 Anemia in chronic kidney disease; J44.9 Chronic obstructive pulmonary disease, unspecified; S22.089A Unspecified fracture of T11-T12 vertebra, initial encounter for closed fracture; E66.01 Morbid (severe) obesity due to excess calories; E03.9 Hypothyroidism, unspecified; E11.22 Type 2 diabetes mellitus with diabetic chronic kidney disease; F03.90 Unspecified dementia, unspecified severity, without behavioral disturbance, psychotic disturbance, mood disturbance, and anxiety; W18.30XA Fall on same level, unspecified, initial encounter; I95.9 Hypotension, unspecified; Y92.009 Unspecified place in unspecified non-institutional (private) residence as the place of occurrence of the external cause; Z79.899 Other long term (current) drug therapy; Z88.0 Allergy status to penicillin; Z88.8 Allergy status to other drugs, medicaments and biological substances; Z90.49 Acquired absence of other specified parts of digestive tract; Z90.710 Acquired absence of both cervix and uterus; Z99.2 Dependence on renal dialysis; Z79.51 Long term (current) use of inhaled steroids; Z79.4 Long term (current) use of insulin
CPT/HCPCS: 36415; 36416; 51701; 70450; 71260; 72125; 74177; 80048; 80053; 80202; 81003; 81015; 82550; 82553; 83690; 83735; 83970; 84100; 84484; 85007; 85025; 85027; 86706; 87340; 87635; 90935; 93005; 96365; 96372; 96375; 96376; G0257; G0378; J0696; J1644; J1815; J2270; J3370; J7050; J7620; P9047; Q5105; Q9967; U0003; U0005

== ENCOUNTER 2020-09-21 20:46 | Emergency (ER) | payer MEDICARE, MEDICAID | END 2020-09-21 20:51 | LOC: ERS 20:46 | DX: T83.091A Other mechanical complication of indwelling urethral catheter, initial encounter (principal); E11.22 Type 2 diabetes mellitus with diabetic chronic kidney disease; E03.9 Hypothyroidism, unspecified; J44.9 Chronic obstructive pulmonary disease, unspecified; I13.2 Hypertensive heart and chronic kidney disease with heart failure and with stage 5 chronic kidney disease, or end stage renal disease; I50.9 Heart failure, unspecified; N18.6 End stage renal disease; Z79.899 Other long term (current) drug therapy; Z79.4 Long term (current) use of insulin | CPT/HCPCS: 99284 ==